=== PATIENT | male | born 1980 | race African-American/Black ===

== ENCOUNTER 2024-08-23 13:33 | Outpatient (OUT) | payer BC, SELFPAY | END 2024-08-23 13:34 | disposition home or self-care (01) | LOC: PST 13:34 | PROVIDERS: Visit Provider Surgery | DX: Z01.818 Encounter for other preprocedural examination (principal); D17.23 Benign lipomatous neoplasm of skin and subcutaneous tissue of right leg ==

== ENCOUNTER 2024-08-29 09:35 | Day surgery (SDC) | payer BC, SELFPAY ==
--- NOTE | 2024-08-29 | OP_ITS ---
OPERATION DATE: 08/29/2024 PREOPERATIVE DIAGNOSIS: Enlarging lipoma right thigh. POSTOPERATIVE DIAGNOSIS: Enlarging lipoma right thigh. PROCEDURE: Excisional biopsy lipoma of right thigh, 3 x 4 cm. SURGEON: Ziggy Aguayo M.D. ANESTHESIA: Local with 0.5% Marcaine plain. ESTIMATED BLOOD LOSS: Less than 3 mL. INDICATIONS AND CONSENT: Patient is a 44-year-old male with history of an enlarging lipoma over the last nine months on the right thigh. Indications, risks, benefits, alternatives of proceeding with excisional biopsy under local anesthesia were explained extensively to the patient, including the risks of bleeding, infection, scarring, pain, recurrence, need for further surgery or anesthetic complications. All of his questions were answered. Informed consent was obtained. PROCEDURE: Patient to the operating room, placed in the supine position. He was prepped and draped in the usual sterile fashion. The area overlying and underneath the lesion was anesthetized with 0.5% Marcaine plain. Incision was made in the area of the skin crease, over the long axis of the lipoma and carried down through subcutaneous tissue using sharp dissection as well as cautery. A 3 x 4 cm lipomas was encountered and freed up. It was sent off to Pathology. There was good hemostasis. There was some scarring around the lipoma. The subcutaneous tissue was then re-approximated using interrupted 3-0 Monocryl suture. The skin was closed with a running 4-0 subcuticular Monocryl suture and skin glue. Sterile pressure dressing was applied. Sponge and needle counts were correct x3 per nursing personnel. Patient tolerated procedure well, was sent to recovery room and then discharged home in good condition. He is to follow up in 7-10 days for wound check. He is to call sooner with any problems or questions. He is to take ibuprofen as needed for pain. CC: Patient?s family physician ERICA
--- OUTSIDE RECORDS SUMMARY | 2024-08-29 09:45 | XMS_ITS | CCD ---
Author Organization [facility] Care Team Providers Care Courtesy Car Driver Name Role Phone CASS, DR BOYCE Primary Care Unavailable SHIRLEY ZHANG Admitting Unavailable SHIRLEY ZHANG Attending Unavailable ELIANA, DR SHELLY Ngo Admitting Unavailable ELIANA, DR SHELLY Ngo Attending Unavailable ELIANA, DR SHELLY Ngo Consulting Unavailable CASS, DR BOYCE Primary Care Unavailable JERICA REEVES Consulting Unavailable ANAHI SOTO Admitting Unavailable ANAHI SOTO Attending Unavailable MANDEEP ELMORE Consulting Unavailable CASS, DR BOYCE Primary Care Unavailable ANAHI SOTO Consulting Unavailable SHIRLEY ZHANG Admitting Unavailable SHIRLEY ZHANG Attending Unavailable CASS, DR BOYCE Primary Care Unavailable WOODC, DR BOYCE Primary Care Unavailable JOSTIN, DR PIPER Ngo Consulting Unavailable SHIRLEY ZHANG Admitting Unavailable SHIRLEY ZHANG Attending Unavailable SHIRLEY ZHANG Consulting Unavailable Vcítor Mendez Unavailable BEBE, ROMARIO Referring Unavailable SERVICES, [facility] Primary Care Unava ilable BEBE, ROMARIO Primary Care Physician BEBE, ROMARIO Primary Care Unavailable BEBE, ROMARIO Referring Unavailable Ziggy JOSHUA Attending Unavailable BEBE, ROMARIO Primary Care Unavailable Allergies Allergy Classification Reported Allergen(s) Allergy Type Date of Onset Reaction(s) Facility (1 source) No Known Medication Allergies; Translations: [No Known Medication Allergies] Propensity to adverse reactions (disorder) [facility] Repository Medications Current Medications Medication Drug Class(es) Dates Sig (Normalized) Sig (Original) Vitamin D3 50,000 intl units oral capsule (1 source) Start: 07-17-2024 take 1 capsule by mouth every week Vitamin D3 50,000 intl units oral capsule 1,250 mcg = 1 cap(s), Oral, qWeek, Refills(s) 0 Start Date: 07/17/24 Status: Ordered Problems Active Problems Problem Classification Problem Date Documented Da te Episodic/Chronic Chronic ulcer of skin (1 source) Non-pressure chronic ulcer of other part of right foot limited to breakdown of skin; Translations: [N-PRS ULCR OTH PRT RT FT BRKDWN SKN] Onset: 2 Chronic Esophageal disorders (2 sources) Gastroesophageal reflux disease; Translations: [Gastro-esophageal reflux disease without esophagitis] 07-17-2024 Chronic Mycoses (5 sources) Tinea pedis; Translations: [TINEA PEDIS] Onset: 2 Episodic Nutritional deficiencies (1 source) Vitamin D deficiency 07-17-2024 Chronic Open wounds of extremities (4 sources) Unspecified open wound, left foot, initial encounter; Translations: [UNS OPEN WOUND LEFT FOOT INITIAL] Onset: 2 Episodic Other and unspecified benign neoplasm (1 source) Benign lipomatous neoplasm of skin and subcutaneous tissue of right leg; Translations: [Benign lipomatous neoplasm of skin and/or subcutaneous tissue of right lower limb] Onset: 5 Episodic Other and unspecified benign neoplasm (1 source) Lipoma of right lower limb 07-17-2024 Episodic Other connective tissue disease (4 sources) Pain in left foot; Translations: [PAIN IN LEFT FOOT] Onset: 2 Episodic Other gastrointestinal disorders (1 source) Constipation; Translations: [Constipation, unspecified] Episodic Other liver diseases (1 source) Focal nodular hyperplasia of liver; Translations: [Other specified diseases of liver] Chronic Other liver diseases (2 sources) Lesion of liver; Translations: [Liver disease, unspecified] 07-17-2024 Chronic Other liver diseases (1 source) Liver disease, unspecified Chronic Other skin disorders (1 source) Corns and callosities; Translations: [CORNS AND CALLOSITIES] Onset: 2 Episodic Other skin disorders (1 source) Localized swelling, mass and lump, right lower limb; Translations: [Localized swelling, mass and lump, right lower limb] Onset: 4 Episodic Pancreatic disorders (not diabetes) (3 sources) Chronic pancreatitis; Translations: [Other chronic pancreatitis] Chronic Residual codes; unclassified (1 source) Tobacco user 08-08-2024 Episodic Substance-related disorders (1 source) Nicotine dependence, cigarettes, uncomplicated; Translations: [NICOTINE DEPEND CIGARETTES UNCOMP] Onset: 2 Chronic Past or Other Problems Problem Classification Problem Date Documented Da te Episodic/Chronic Abdominal pain (4 sources) Epigastric pain; Translations: [EPIGASTRIC PAIN] Onset: 08-04-2021 Episodic Pancreatic disorders (not diabetes) (1 source) Acute pancreatitis without necrosis or infection, unspecified; Translations: [ACUTE PANCREATITIS WO NECRS/INF UNS] Onset: 08-06-2021 Episodic Results Test Name Value Interpretation Reference Range Facil ity Ambulatory Visit Summaryon 0 08-08-2024 Ambulatory Visit Summary Ambulatory Visit Summary RAJANI ELDER :1980 Visit Date:08/08/2024 Ambulatory Visit Instructions Your Diagnosis Lipoma of right lower extremity Your Care Team Attending Physician - JOSIANE CANNON, Ziggy Ngo Primary Care Physician - ROMARIO SPENCE Referring Physician - ROMARIO SPENCE This Is Your Medications List cholecalciferol (Vitamin D3 50,000 intl units oral capsule) Procedures Performed None. Discharge Vitals Heart Rate (Peripheral) 70 Respiratory Rate 16 Blood Pressure 116/70 Height 179 cm Height 70 in Weight 76.1 kg Weight 167.772 lb BMI 23.75 Medications What How Much When Instructions Unchanged cholecalciferol (Vitamin D3 50,000 intl units oral capsule) 1 Capsules By Mouth Every week Allergies No Known Allergies No Known Medication Allergies Problems Ongoing - Any problem that you are currently receiving treatment for. Chronic pancreatitis Gastroesophageal reflux disease Lesion of liver Lipoma of right lower extremity Vitamin D deficiency Patient Survey You may receive a survey via text or e-mail asking about your office visit. Please share your experience with us by completing your survey. We appreciate your feedback and thank you for choosing us for your care. Normal [facility] US EXT NON-VASC RT LIMITEDon 06-23-2024 US EXT NON-VASC RT LIMITED US EXT NON-VASC RT LIMITED ULTRASOUND EXTREMITY NONVASCULAR LIMITED RIGHT HISTORY: Right leg swelling, lump of scan COMPARISON: None FINDINGS: At the site of lump in the right lateral thigh there is an oval circumscribed isoechoic structure in the subcutaneous tissues measuring 4.0 x 0.6 x 3.9 cm. IMPRESSION: Palpable lump in the right lateral thigh corresponds to an oval circumscribed structure measuring 4.0 x 0.6 x 3.9 cm in the subcutaneous tissues isoechoic to adjacent subcutaneous fat. This may represent lipoma. If there is growth of this lesion or other concerning clinical factors recommend short-term follow-up imaging or further characterization with cross-sectional imaging. Finalized by Austin Pop MD on 06/23/2024 9:40 AM Normal [facility] XR FOOT LT MIN 3 VIEWSon XR FOOT LT MIN 3 VIEWS EXAM: XR FOOT LT MIN 3 VIEWS HISTORY: Left foot Pain puncture wound. COMPARISON: None available. TECHNIQUE: AP, lateral and oblique views of the left foot are obtained. FINDINGS: There is no focal soft tissue swelling or radiopaque foreign body. No subcutaneous emphysema. No ankle joint effusion. Osseous mineralization is within normal limits. No acute fracture or dislocation. Spurring at the anterior talus is present. Tarsal alignment and joint spaces are normally maintained IMPRESSION: No acute fracture or dislocation. No radiopaque foreign body. Electronically authenticated by: JERICA REEVES Date: 2022-04-05 01:19 Normal [facility] AMYLASEon 08-04-2021 Amylase [Catalytic activity/Vol] 128 U/L Critically high 31-110 [facility] Comment on above: Performed By: #### C MP, LIPA, LIZZY #### [facility] [address] [place] [address] Dr. Cirilo Melendez CBC AUTO DIFFon 08-04-2021 BASO # 0.0 103/ul Normal 0.0-0.1 [facility] Comment on above: Performed By: #### C BC #### [facility] [address] [place] [address] Dr. Cirilo Melendez Basophils/100 WBC (Bld) 0.4 % Normal 0.2-2.0 [facility] Comment on above: Performed By: #### C BC #### [facility] [address] [place] [address] Dr. Cirilo Melendez EO # 0.1 103/ul Normal 0.0-0.7 [facility] Comment on above: Performed By: #### C BC #### [facility] [address] [place] [address] Dr. Cirilo Melendez Eosinophils/100 WBC (Bld) 0.8 % Critically low 0.9-7.0 [facility] Comment on above: Performed By: #### C BC #### [facility] [address] [place] [address] Dr. Cirilo Melendez Erythrocyte distribution width (RBC) [Ratio] 13.9 % Normal 11.0-15.0 [facility] Comment on above: Performed By: #### C BC #### [facility] [address] [place] [address] Dr. Cirilo Melendez Hematocrit (Bld) [Volume fraction] 45.0 % Normal 42.0-54.0 [facility] Comment on above: Performed By: #### C BC #### [facility] [address] [place] [address] Dr. Cirilo Melendez Hemoglobin (Bld) [Mass/Vol] 15.2 g/dL Normal 14.0-18.0 [facility] Comment on above: Performed By: #### C BC #### [facility] [address] [place] [address] Dr. Cirilo Melendez IG # 0.04 10e3/ul Critically high 0.00-0.03 [facility] Comment on above: Performed By: #### C BC #### [facility] [address] [place] [address] Dr. Cirilo Melendez IG % 0.4 % Normal 0.0-0.5 [facility] Comment on above: Performed By: #### C BC #### [facility] [address] [place] [address] Dr. Cirilo Melendez LYMPH # 2.5 103/ul Normal 1.2-3.8 [facility] Comment on above: Performed By: #### C BC #### [facility] [address] [place] [address] Dr. Cirilo Melendez Lymphocytes/100 WBC (Bld) 27.6 % Normal 20.5-60.0 [facility] Comment on above: Performed By: #### C BC #### [facility] [address] [place] [address] Dr. Cirilo Melendez MANUAL DIFF REQ NO Normal [facility] Comment on above: Performed By: #### C BC #### [facility] [address] [place] [address] Dr. Cirilo Melendez MCH (RBC) [Entitic mass] 30.5 pg Normal 25.9-34.0 [facility] Comment on above: Performed By: #### C BC #### [facility] [address] [place] [address] Dr. Cirilo Melendez MCHC (RBC) [Mass/Vol] 33.8 g/dL Normal 29.9-35.2 [facility] Comment on above: Performed By: #### C BC #### [facility] [address] [place] [address] Dr. Cirilo Melendez MCV (RBC) [Entitic vol] 90.2 fL Normal 80.0-94.0 [facility] Comment on above: Performed By: #### C BC #### [facility] [address] [place] [address] Dr. Cirilo Melendez MONO # 0.8 103/ul Normal 0.3-0.8 [facility] Comment on above: Performed By: #### C BC #### [facility] [address] [place] [address] Dr. Cirilo Melendez Monocytes/100 WBC (Bld) 8.7 % Normal 1.7-12.0 [facility] Comment on above: Performed By: #### C BC #### [facility] [address] [place] [address] Dr. Cirilo Melendez NEUT # 5.6 103/ul Normal 1.4-6.5 [facility] Comment on above: Performed By: #### C BC #### [facility] [address] [place] [address] Dr. Cirilo Melendez Neutrophils/100 WBC (Bld) 62.1 % Normal 43.0-75.0 [facility] Comment on above: Performed By: #### C BC #### [facility] [address] [place] [address] Dr. Cirilo Melendez Platelet mean volume (Bld) [Entitic vol] 9.4 fL Critically low 9.5-13.5 [facility] Comment on above: Performed By: #### C BC #### [facility] [address] [place] [address] Dr. Cirilo Melendez PLT 272 103/ul Normal 150-450 [facility] Comment on above: Performed By: #### C BC #### [facility] [address] [place] [address] Dr. Cirilo Melendez RBC 4.99 106/ul Normal 4.70-6.10 [facility] Comment on above: Performed By: #### C BC #### [facility] [address] [place] [address] Dr. Cirilo Melendez WBC 9.1 103/ul Normal 4.0-11.0 [facility] Comment on above: Performed By: #### C BC #### [facility] [address] [place] [address] Dr. Cirilo Melendez ER URINE PROFILEon 2 Bilirubin Ql (U) Negative Normal NEGATIVE [facility] Comment on above: Performed By: #### E RUR #### [facility] [address] [place] [address] Dr. Cirilo Melendez Clarity (U) CLEAR Normal CLEAR [facility] Comment on above: Performed By: #### E RUR #### [facility] [address] [place] [address] Dr. Cirilo Melendez Color (U) YELLOW Normal YELLOW [facility] Comment on above: Performed By: #### E RUR #### [facility] [address] [place] [address] Dr. Cirilo ZALDIVARMaile A micrscopic examination will be performed if indicated. Normal [facility] Comment on above: Performed By: #### E RUR #### [facility] [address] [place] [address] Dr. Cirilo Melendez Glucose Ql (U) Negative Normal NEGATIVE [facility] Comment on above: Performed By: #### E RUR #### [facility] [address] [place] [address] Dr. Cirilo Melendez Hemoglobin Ql (U) Negative Normal NEGATIVE [facility] Comment on above: Performed By: #### E RUR #### [facility] [address] [place] [address] Dr. Cirilo Melendez Ketones Ql (U) Negative Normal NEGATIVE [facility] Comment on above: Performed By: #### E RUR #### [facility] [address] [place] [address] Dr. Cirilo Melendez LEUKOCYTES Negative Normal NEGATIVE [facility] Comment on above: Performed By: #### E RUR #### [facility] [address] [place] [address] Dr. Cirilo Melendez Nitrite Ql (U) Negative Normal NEGATIVE [facility] Comment on above: Performed By: #### E RUR #### [facility] [address] [place] [address] Dr. Cirilo Melendez pH (U) 6.0 [pH] Normal 5-9 [facility] Comment on above: Performed By: #### E RUR #### [facility] [address] [place] [address] Dr. Cirilo Melendez SPEC GRAVITY 1.025 Normal 1.005-<=1.025 [facility] Comment on above: Performed By: #### E RUR #### [facility] [address] [place] [address] Dr. Cirilo Melendez UA PROTEIN Negative Normal NEGATIVE/ TRACE [facility] Comment on above: Performed By: #### E RUR #### [facility] [address] [place] [address] Dr. Cirilo Melendez UR MICRO IND NOT INDICATED Normal [facility] Comment on above: Performed By: #### E RUR #### [facility] [address] [place] [address] Dr. Cirilo Melendez Urobilinogen Qn (U) 0.2 {Gertrudis'U}/dL Normal 0.2 - 1.0 [facility] Comment on above: Performed By: #### E RUR #### [facility] [address] [place] [address] Dr. Cirilo Melendez LACTATE/LACTIC ACIDon 2021 Lactate [Moles/Vol] 0.6 mmol/L Critically low 0.7-2.0 [facility] Comment on above: Performed By: #### L ACT #### [facility] [address] [place] [address] Dr. Cirilo Melendez LIPASEon 08-04-2021 Lipase [Catalytic activity/Vol] 508.0 U/L Critically high 23.0-300.0 [facility] Comment on above: Performed By: #### C NELLIE CHI, LIZZY #### [facility] [address] [place] [address] Dr. Cirilo Melendez PROF 14(COMP METB)on 022 Albumin [Mass/Vol] 3.8 g/dL Normal 3.5-5.0 [facility] Comment on above: Performed By: #### C ALON LIPA, LIZZY #### [facility] [address] [place] [address] Dr. Cirilo Melendez Albumin/Globulin [Mass ratio] 0.9 {ratio} Normal [facility] Comment on above: Performed By: #### C ALON LIPA, LIZZY #### [facility] [address] [place] [address] Dr. Cirilo Melendez ALP [Catalytic activity/Vol] 74 U/L Normal 38-126 [facility] Comment on above: Performed By: #### C MP LIPA, LIZZY #### [facility] [address] [place] [address] Dr. Cirilo Melendez ALT [Catalytic activity/Vol] 45 U/L Normal 21-72 [facility] Comment on above: Performed By: #### C MP LIPA, LIZZY #### [facility] [address] [place] [address] Dr. Cirilo Melendez Anion gap [Moles/Vol] 10.0 mmol/L Normal [facility] Comment on above: Performed By: #### C MP LIPA, LIZZY #### [facility] [address] [address] [address] Cirilo Melendez AST [Catalytic activity/Vol] 16 U/L Critically low 17-59 [facility] Comment on above: Performed By: #### C MP, LIPA, LIZZY #### [facility] [address] [address] [address] Cirilo Melendez Bilirubin [Mass/Vol] 0.4 mg/dL Normal 0.2-1.3 [facility] Comment on above: Performed By: #### C MP, LIPA, LIZZY #### [facility] [address] [address] [address] Cirilo Melendez Calcium [Mass/Vol] 9.7 mg/dL Normal 8.4-10.2 [facility] Comment on above: Performed By: #### C MP, LIPA, LIZZY #### [facility] [address] [place] [address] Dr. iCrilo Melendez Chloride [Moles/Vol] 103 mmol/L Normal 98-107 [facility] Comment on above: Performed By: #### C MP, LIPA, LIZZY #### [facility] [address] [address] [address] Cirilo Melendez CO2 [Moles/Vol] 30.3 mmol/L Critically high 22.0-30.0 [facility] Comment on above: Performed By: #### C MP, LIPA, LIZZY #### [facility] [address] [address] [address] Cirilo Melendez Creatinine [Mass/Vol] 1.13 mg/dL Normal 0.66-1.25 [facility] Comment on above: Performed By: #### C MP, LIPA, LIZZY #### [facility] [address] [address] [address] Cirilo Melendez EGFR-AF [place]IZEN [place] >60 Normal >=60 [facility] Comment on above: Performed By: #### C MP, LIPA, LIZZY #### [facility] [address] [place] [address] Dr. Cirilo Melendez EGFR-NON AF CITIZEN [place] >60 Normal >=60 [facility] Comment on above: Performed By: #### C MP, LIPA, LIZZY #### [facility] [address] [place] [address] Dr. Cirilo Melendez Globulin (S) [Mass/Vol] 4.3 g/dL Normal [facility] Comment on above: Performed By: #### C MP, LIPA, LIZZY #### [facility] [address] [place] [address] Dr. Cirilo Melendez Glucose [Mass/Vol] 121 mg/dL Critically high 74-106 [facility] Comment on above: Performed By: #### C MP, LIPA, LIZZY #### [facility] [address] [place] [address] Dr. Cirilo Melendez Potassium [Moles/Vol] 4.3 mmol/L Normal 3.4-5.0 [facility] Comment on above: Performed By: #### C MP, LIPA, LIZZY #### [facility] [address] [place] [address] Dr. Cirilo Melendez Protein [Mass/Vol] 8.1 g/dL Normal 6.1-8.2 [facility] Comment on above: Performed By: #### C MP LIPA, LIZZY #### [facility] [address] [place] [address] Dr. Cirilo Melendez Sodium [Moles/Vol] 139 mmol/L Normal 137-145 [facility] Comment on above: Performed By: #### C MP, LIPA, LIZZY #### [facility] [address] [place] [address] Dr. Cirilo Melendez Urea nitrogen [Mass/Vol] 9.0 mg/dL Normal 9.0-20.0 [facility] Comment on above: Performed By: #### C MP, LIPA, LIZZY #### [facility] [address] [place] [address] Dr. Cirilo Melendez Urea nitrogen/Creatinin e [Mass ratio] 8.0 mg/mg Normal [facility] Comment on above: Performed By: #### C MP, LIPA, LIZZY #### [facility] [address] [place] [address] Dr. Cirilo Melendez PROTIMEon 01-11-2022 INR Coag (PPP) [Relative time] 1.03 {INR} Normal [facility] Comment on above: Performed By: #### P TT, PT #### [facility] [address] [place] [address] Dr. Cirilo Melendez INR GUIDELINES SEE BELOW Normal [facility] Comment on above: Result Comment: MIREYA RED INR: 2.0 - 3.0 CONDITIONS NOT LISTED BELOW 2.5 - 3.5 FOR PROSTHETIC HEART VALVE REPLACEMENT 2.5 - 3.5 RECURRENT THROMBOSIS Performed By: #### P TT, PT #### [facility] [address] [place] [address] Dr. Cirilo Melendez PT Coag (PPP) [Time] 11.1 s Normal 9.0-11.6 [facility] Comment on above: Performed By: #### P TT, PT #### [facility] [address] [place] [address] Dr. Cirilo Melendez PTTon 08-04-2021 aPTT Coag (Bld) [Time] 28.2 s Normal 22.3-36.2 [facility] Comment on above: Performed By: #### P TT, PT #### [facility] [address] [place] [address] Dr. Cirilo Melendez Vital Signs Date Time Vital Sign Value Performing Clinician Facility 08-08-2024 13:26-0500 Blood Pressure Location Ziggy JOSHUA [facility] [place] 08-08-2024 13:26-0500 Diastolic blood pressure 70 mm[Hg] Ziggy JOSHUA [facility] [place] 08-08-2024 13:26-0500 Heart rate 70 /min Ziggy JOSHUA [facility] [place] 08-08-2024 13:26-0500 Respiratory rate 16 /min Ziggy JOSHUA [facility] [place] 08-08-2024 13:26-0500 Systolic blood pressure 116 mm[Hg] Ziggy JOSHUA [facility] [place] 10-13-2022 11:30-0400 Body height 182.88 cm Víctor Mendez Other [facility] Other 10-13-2022 11:30-0400 Body mass index (BMI) [Ratio] 24 kg/m2 Víctor Mendez Other [facility] Other 10-13-2022 11:30-0400 Body weight 80.29 kg Víctor Mendez Other [facility] Other 10-13-2022 11:30-0400 Diastolic blood pressure 73 mm[Hg] Víctor Mendez Other [facility] Other 10-13-2022 11:30-0400 Systolic blood pressure 120 mm[Hg] Víctor Mendez Other [facility] Other Encounters Encounter Date Encounter Type Care Provider Facility Start: 08-08-2024 End: 08-08-2024 ambulatory ROMARIO BEBE Facility:[facility] Start: 08-08-2024 End: 08-08-2024 Patient encounter procedure Ziggy JOSHUA [facility] [place] Start: 07-10-2024 ambulatory ROMARIO BEBE Facility:[facility] [place] Start: 06-20-2024 End: 06-20-2024 ambulatory ROMARIO BEBE [facility] Start: 10-13-2022 End: 10-13-2022 ambulatory Víctor Mendez Other [facility] Other Start: 10-13-2022 Office outpatient ne w 45 minutes Víctor Mendez [facility] G[facility] Start: 05-24-[address] DOCTOR ODELL Facility :[facility] Start: 05-04-2022 End: 05-05-[address] DOCTOR ODELL Facility:[facility] Start: 04-06-2022 End: 04-07-2022 ambulatory SHIRLEY ZHANG Facility:[facility] Start: 04-05-2022 End: 04-05-[address] SHELLY MONROY Facility:[facility] Start: 08-04-2021 End: 08-05-2021 ambulatory ANAHI SOTO Facility:[facility] Procedures Date Procedure Procedure Detail Performing Clinician None (qualifier value) Denny JOSHUA Payers Date Payer Category Payer Unknown [id number] 2.16.84 [id number] 1981 Unknown [id number] 2.16.84 [id number] 1981 Unknown [id number] 2.16.84 [id number] 1981 Unknown [id number] 2.16.84 [id number] 1981 Unknown [id number] 2.16.84 [id number] 1981 Unknown [id number] 2.16.8 [id number] 1981 Unknown [id number] 2.16.8 [id number] 1959 Unknown [id number] Medicaid [id number]. [id number] Social History Date Type Detail Facility Sex Assigned At [facility] Start: 08-08-2024 Tobacco smoking status Smokes tobacco daily (finding) [facility] [place] Tobacco smoking status Never [facility] [place] Functional Status Date Assessment Result Facility 08-08-2024 Functional Status N/A [facility] [place] Clinical Note 08-08-2024 Note Date & Type Note Facility 08-08-2024 Note General Surgery Offi ce/Clinic Note Chief Complaint consultation for lipoma HPI Staff 44 year old male presents on consultation from Dr. Spence for right lateral thigh lipoma. Reports mass to upper leg has been present for approximately 7-8 months and has been increasing in size. Verbalized he has a mass to right posterior thigh he would like evaluated today as well. Denies pain or discomfort to either location. US completed 06/23/24 of upper leg mass with probable lipoma. History of Present Illness 44 yo male with h/o GERD, referred for possible lipoma right lateral thigh; result US of area with 4 x 0.6 x 4 cm subcutaneous mass, consistent with possible lipoma; patient reports mass increasing in size over the last several months; no pain or skin changes, no h/o other similar lesions; no asa or NSAID use; smokes cigars/pipes daily. Review of Systems PHQ Score Initial Depression Screen Score: 1 SCORE ROS - Provider Constitutional: no fever, no sweats, no weight loss. Eyes: no glasses, no blurred vision, no visual loss. ENMT: no dentures, no hoarseness, no swallowing difficulties, no hearing loss, no ear infection(s), no nose bleeds. Cardiovascular: normal blood pressure, no chest pain, regular heartbeat, no heart murmur. Respiratory: no shortness of breath, no cough, no asthma, no wheezing. Gastrointestinal: no nausea, no vomiting, no diarrhea, no constipation, no blood in stool, no change in bowel habits, no abdominal pain, no hepatitis. Genitourinary: no kidney stones, no urine infection, no dysuria. Musculoskeletal: no pain, no weakness. Skin: no changing moles, no rash, no skin lumps. Neurologic: no seizures, no epilepsy, no headache. Psychiatric: no emotional or psychiatric problem. Heme/Lymph: no bleeding problems, no anemia, no blood clots, no transfusions. Allergy/Immunologic: no swollen lymph nodes/glands, no IV drug abuse. Other: Additional ROS info: Except as noted in the above Review of Systems and in the History of Present Illness, all other systems have been reviewed and are negative or noncontributory. Physical Exam Vitals & Measurements HR: 70(Peripheral) RR: 16 BP: 116/70 HT: 70 in HT: 179 cm WT: 76.1 kg WT: 167.772 lb BMI: 23.75 HEENT: normal conjunctiva, sclera clear, no scleral icterus, EOM intact, PERRLA, oral mucosa moist without lesions. Neck: trachea midline, no mass, symmetric, no thyromegaly or nodules, no adenopathy Respiratory: lungs CTA, respirations non labored. Cardiovascular: regular rate and rhythm, no murmur, no pedal edema or varicosities. Musculoskeletal: normal gait, digits and nails without infection, nodes, cyanosis, clubbing. Skin: no rashes, no lesions, no ulcers, right lateral thigh with 4 cm soft subcutaneous mass, nontender, no skin changes. Psychiatric/Neuro: oriented to time, place, person, judgement normal, affect appropriate for age, insight intact, no focal deficits. Tests: x-rays reviewed, review of old records completed , Discussed surgical options, risks, and possible complications with patient. Assessment/Plan 1. Lipoma of right lower extremity (D17.23: Benign lipomatous neoplasm of skin and subcutaneous tissue of right leg) plan excisional biopsy under local anesthesia at [facility] for definitive diagnosis and treatment; informed consent obtained. Follow-up No qualifying data available Problem List/Past Medical History Ongoing Chronic pancreatitis Gastroesophageal reflux disease Lesion of liver Lipoma of right lower extremity Vitamin D deficiency Historical No qualifying data Procedure/Surgical History None. Medications Vitamin D3 50,000 intl units oral capsule, 1250 mcg= 1 cap(s), Oral, qWeek Allergies No Known Allergies No Known Medication Allergies Social History Alcohol Past. Beer. 1-2 times per month., 08/08/2024 Substance Abuse Current, Marijuana, 3-5 times per week, 08/08/2024 Tobacco Cigars or pipes daily within last 30 days Tobacco Use:. Never Smokeless Tobacco Use:. Cigars, Started age 27.0 Years. Yes, 08/08/2024 Family History Primary malignant neoplasm of female breast: Mother. [facility] Comment on above: Result Comment: Elec tronically Signed By: JOSIANE CANNON, Ziggy Cheung\Date and Time Signed: 08/08/24 14:09 EST Evaluation note 10-13-2022 Note Date & Type Note Facility 10-13-2022 Evaluation note Encounter Date Diagnosis Assessment Notes Sep, Liver lesion (ICD-10 - K76.9) Sep, Chronic pancreatitis (ICD-10 - K86.1) [facility] [employer] Other Clinical Note 05-04-2022 Note Date & Type Note Facility 05-04-2022 Note PROCEDURE: XR FOOT L T MIN 3 VIEWS HISTORY: Pain in left foot ; follow-up puncture wound plantar surface first metatarsal region. COMPARISON: XR foot left 04/05/2022 FINDINGS: BONES:No fracture, acute abnormality, or significant arthropathy. SOFT TISSUES:No visible soft tissue swelling. EFFUSION:None visible. OTHER: Negative. IMPRESSION: 1. No radiopaque foreign body. 2. No acute bone abnormality or significant degenerative changes. Electronically authenticated by: PIPER FRANKEL Date: 2022-05-04 16:34 [facility] Evaluation + Plan note Note Date & Type Note Facility Evaluation + Plan note No data available for this section [facility] History general Narrative - Reported Note Date & Type Note Facility History general Narrative - Reported Type Medical History alcohol abuse [facility] [employer] Other Hospital Discharge instructions Note Date & Type Note Facility Hospital Discharge instructions No data available for this section [facility] Progress note Note Date & Type Note Facility Progress note No data available for this section [facility] Summary Purpose Family History No Family History Records FoundNo Family History Records Found No data available for this section No Family History Records Found Advance Directives No Advanced Directives Records FoundNo Advanced Directives Records FoundNo Advanced Directives Records Found Additional Source Comments (unrecognized sect ion and content) No Status Records FoundNo Status Records FoundNo Status Records Found INFORMATION SOURCE (unrecogn ized section and content) DATE CREATED AUTHOR 05/20/2022 [facility] DATE CREATED AUTHOR AUTHOR'S ORGANIZ ATION 06/23/2024 [facility] DATE CREATED AUTHOR AUTHOR'S ORGANIZ ATION 08/11/2024 [facility] REASON FOR VISIT (unrecogniz ed section and content) PATIENT HERE AT THE REQUEST OF DR. JANN ALBERTO FOR LIVER MASS AND CHRONIC PANCREATITIS/PER LRM DOUBLE BOOK Patient Care team informatio n (unrecognized section and content) Personnel Name: ROMARIO SPENCE Address: Address: [address] [place] [address] FOR RECORDS PERTAINING TO PATIENTS WHO ARE OR HAVE BEEN ENROLLED IN A CHEMICAL DEPENDENCY/SUBSTANCEABUSE PROGRAM, SOME INFORMATION MAY BE OMITTED. This clinical summary was aggregated from multiple sources. Caution should be exercised in using it in the provision of clinical care. This summary normalizes information from multiple sources, and as a consequence, information in this document may materially change the coding, format and clinical context of patient data. In addition, data may be omitted in some cases. CLINICAL DECISIONS SHOULD BE BASED ON THE PRIMARY CLINICAL RECORDS. [facility] [employer] [facility]. provides no warranty or guarantee of the accuracy or completeness of information in this document.
[2024-08-29 10:44] VITALS: BP 110/72; BP 117/71; PULSE 58; PULSE 75; O2SAT 100
[2024-08-29] MEDS: BUPIVACAINE HCL 0.5% PF 50 MG/10 ML VIAL INJ (10:45)
== END 2024-08-29 11:20 | disposition home or self-care (01) ==
PROVIDERS: Visit Provider Surgery
PROC: (CPT 27337; principal; 2024-08-29 11:05)
DX: D17.23 Benign lipomatous neoplasm of skin and subcutaneous tissue of right leg (principal)
CPT/HCPCS: 27337; 88304; J0665

== ENCOUNTER 2024-09-04 19:22 | Emergency (ER) | payer BC, SELFPAY ==
--- OUTSIDE RECORDS SUMMARY | 2024-09-04 19:28 | XMS_ITS | CCD ---
Author Organization [facility] Care Team Providers Care Kettle Cleaner Name Role Phone CASS, DR BOYCE Primary Care Unavailable SHIRLEY ZHANG Admitting Unavailable SHIRLEY ZHANG Attending Unavailable ELIANA, DR SHELLY Ngo Admitting Unavailable ELIANA, DR SHELLY Ngo Attending Unavailable ELIANA, DR SHELLY Ngo Consulting Unavailable CASS, DR BOYCE Primary Care Unavailable JERICA REEVES Consulting Unavailable ANAHI SOTO Admitting Unavailable ANAHI SOTO Attending Unavailable MANDEEP ELMORE Consulting Unavailable WOODC, DR BOYCE Primary Care Unavailable ANAHI SOTO Consulting Unavailable SHIRLEY ZHANG Admitting Unavailable SHIRLEY ZHANG Attending Unavailable CASS, DR BOYCE Primary Care Unavailable CASS, DR BOYCE Primary Care Unavailable JOSTIN, DR PIPER Ngo Consulting Unavailable SHIRLEY ZAHNG Admitting Unavailable SHIRLEY ZHANG Attending Unavailable SHIRLEY ZHANG Consulting Unavailable Víctor Mendez Unavailable [phone] BEBE, ROMARIO Referring Unavailable SERVICES, [facility] Primary Care Unava ilable BEBE, ROMARIO Primary Care Physician BEBE, ROMARIO Primary Care Unavailable BEBE, ROMARIO Referring Unavailable Ziggy AGUAYO Attending Unavailable BEBE, [facility] Primary Care Unavailable Ziggy Aguayo MD Attending Provider [phone] Ziggy Aguayo Attending Unavailable Ziggy Aguayo Admitting Unavailable Allergies Allergy Classification Reported Allergen(s) Allergy Type Date of Onset Reaction(s) Facility (1 source) No Known Medication Allergies; Translations: [No Known Medication Allergies] Propensity to adverse reactions (disorder) [facility] Repository Medications Current Medications Medication Drug [...] Test Name Value Interpretation Reference Range Facil luis miguelmeagan Cedric 08-29-2024 L -- ---- Specimen: [id number] Received: 08/29/24 Status: ARABELLA Ashley Num: [id number] Spec Type: Surgical Subm Dr: Ziggy Aguayo MD FACS Tissues: A Lipoma (RT THIGH) Procedures: VALENTIN, Gross/Micro L3 ---- Age/ Patient Sex Location Account Attending Physician ---- Abraham Gomez 44/M LABELL [id number] Ziggy Aguayo MD FACS ---- SPEC NUM: [id number] RECD: 08/29/24 STATUS: CRISTINOMicki RE NUM: [id number] OVI: 08/29/[address]: Ziggy Aguayo MD FACS ENTERED: 08/29/[address]: Karime Phelps SPEC TYPE: Surgical DEPT: TERRI LYNN ORDERED: HE, Gross/Micro L3 ORDERED: HE, Gross/Micro L3 Pathological Diagnosis Soft tissue, right thigh, excision -Large lobulated fragments of benign lipoma with the associated smooth membranous external surfaces are also attached Clinical Information Lipoma right thigh Gross Description A. Received in formalin labeled with the patient's name, date of and right thigh lipoma are 2 fragments of yellow lobulated adipose tissue collectively measuring 4.2 x 3.1 x 1.0 cm. The specimen is inked blue and serially section revealing an unremarkable and homogenous cut surface. No areas of hemorrhage or necrosis are present. [employer] sections are submitted in A1. TW ---- Specimen: [id number] Received: 08/29/24 Status: CRISTINOMicki Ramirez Num: [id number] Spec Type: Surgical Subm Dr: Ziggy Aguayo MD FACS Tissues: A Lipoma (RT THIGH) Procedures: VALENTIN, Gross/Micro L3 ---- Patient: Abraham Gomez [id number] (Continued) ---- Specimen: [id number] Received: 08/29/24 (Continued) Signed (signature on file) Joshua Melendez MD 08/30/24 1651 ---- Specimen: [id number] Received: 08/29/24 Status: ARABELLA Ramirez Num: [id number] Spec Type: Surgical Subm Dr: Ziggy Aguayo MD FACS Tissues: A Lipoma (RT THIGH) Procedures: Sharad HANSON/Diony L3 ---- Patient: Lionel Gomezcarmen [id number] (Continued) ---- Specimen: [id number] Received: 08/29/24 (Continued) Microscopic Description Microscopic examinations are performed supporting the above interpretation CPT Codes 10077 ---- ---- Specimen: [id number] Received: 08/29/24 Status: ARABELLA Ramirez Num: [id number] Spec Type: Surgical Subm Dr: Ziggy Aguayo MD FACS Tissues: A Lipoma (RT THIGH) Procedures: Sharad HANSON/Diony L3 ---- Patient: JasonAbraham [id number] (Continued) ---- Signed (signature on file) Phi-Cory Melendez MD 08/30/24 1651 Normal [facility] Ambulatory Visit Summaryon 0 08-08-2024 Ambulatory Visit Summary Ambulatory Visit Summary ABRAHAM GOMEZ :1980 Visit Date:08/08/2024 Ambulatory Visit Instructions Your [...] you for choosing us for your care. [facility] US EXT NON-VASC RT LIMITEDon 06-23-2024 [...] Pop MD on 06/23/2024 9:40 AM Normal [facility] XR FOOT LT MIN 3 VIEWSon [...] JERICA REEVES Date: 2022-04-05 01:19 Normal [facility] AMYLASEon 08-04-2021 Amylase [Catalytic activity/Vol] 128 U/L Critically high 31-110 [facility] Comment on above: Performed By: #### C MP, LIPA, LIZZY #### [facility] [address] [place] [address] Dr. Cirilo Melendez CBC AUTO DIFFon 08-04-2021 BASO # 0.0 103/ul Normal 0.0-0.1 [facility] Comment on above: Performed By: #### C BC #### [facility] [address] [place] [address] Dr. Cirilo Melendez Basophils/100 WBC (Bld) 0.4 % Normal 0.2-2.0 [facility] Comment on above: Performed By: #### C BC #### [facility] [address] [place] [address] Dr. Cirilo Melendez EO # 0.1 103/ul Normal 0.0-0.7 [facility] Comment on above: Performed By: #### C BC #### [facility] [address] [place] [address] Dr. Cirilo Melendez Eosinophils/100 WBC (Bld) 0.8 % Critically low 0.9-7.0 [facility] Comment on above: Performed By: #### C BC #### [facility] [address] [place] [address] Dr. Cirilo Melendez Erythrocyte distribution width (RBC) [Ratio] 13.9 % Normal 11.0-15.0 [facility] Comment on above: Performed By: #### C BC #### [facility] [address] [place] [address] Dr. Cirilo Melendez Hematocrit (Bld) [Volume fraction] 45.0 % Normal 42.0-54.0 [facility] Comment on above: Performed By: #### C BC #### [facility] [address] [place] [address] Dr. Cirilo Melendez Hemoglobin (Bld) [Mass/Vol] 15.2 g/dL Normal 14.0-18.0 [facility] Comment on above: Performed By: #### C BC #### [facility] [address] [place] [address] Dr. Cirilo Melendez IG # 0.04 10e3/ul Critically high 0.00-0.03 [facility] Comment on above: Performed By: #### C BC #### [facility] [address] [place] [address] Dr. Cirilo Melendez IG % 0.4 % Normal 0.0-0.5 [facility] Comment on above: Performed By: #### C BC #### [facility] [address] [place] [address] Dr. Cirilo Melendez LYMPH # 2.5 103/ul Normal 1.2-3.8 [facility] Comment on above: Performed By: #### C BC #### [facility] [address] [place] [address] Dr. Cirilo Melendez Lymphocytes/100 WBC (Bld) 27.6 % Normal 20.5-60.0 [facility] Comment on above: Performed By: #### C BC #### [facility] [address] [place] [address] Dr. Cirilo Melendez MANUAL DIFF REQ NO Normal [facility] Comment on above: Performed By: #### C BC #### [facility] [address] [place] [address] Dr. Cirilo Melendez MCH (RBC) [Entitic mass] 30.5 pg Normal 25.9-34.0 [facility] Comment on above: Performed By: #### C BC #### [facility] [address] [place] [address] Dr. Cirilo Melendez MCHC (RBC) [Mass/Vol] 33.8 g/dL Normal 29.9-35.2 [facility] Comment on above: Performed By: #### C BC #### [facility] [address] [place] [address] Dr. Cirilo Melendez MCV (RBC) [Entitic vol] 90.2 fL Normal 80.0-94.0 [facility] Comment on above: Performed By: #### C BC #### [facility] [address] [place] [address] Dr. Cirilo Melendez MONO # 0.8 103/ul Normal 0.3-0.8 [facility] Comment on above: Performed By: #### C BC #### [facility] [address] [place] [address] Dr. Cirilo Melendez Monocytes/100 WBC (Bld) 8.7 % Normal 1.7-12.0 [facility] Comment on above: Performed By: #### C BC #### [facility] [address] [place] [address] Dr. Cirilo Melendez NEUT # 5.6 103/ul Normal 1.4-6.5 [facility] Comment on above: Performed By: #### C BC #### [facility] [address] [place] [address] Dr. Cirilo Melendez Neutrophils/100 WBC (Bld) 62.1 % Normal 43.0-75.0 [facility] Comment on above: Performed By: #### C BC #### [facility] [address] [place] [address] Dr. Cirilo Melendez Platelet mean volume (Bld) [Entitic vol] 9.4 fL Critically low 9.5-13.5 [facility] Comment on above: Performed By: #### C BC #### [facility] [address] [place] [address] Dr. Cirilo Melendez PLT 272 103/ul Normal 150-450 [facility] Comment on above: Performed By: #### C BC #### [facility] [address] [place] [address] Dr. Cirilo Melendez RBC 4.99 106/ul Normal 4.70-6.10 [facility] Comment on above: Performed By: #### C BC #### [facility] [address] [place] [address] Dr. Cirilo Melendez WBC 9.1 103/ul Normal 4.0-11.0 [facility] Comment on above: Performed By: #### C BC #### [facility] [address] [place] [address] Dr. Cirilo Melendez ER URINE PROFILEon 2 Bilirubin Ql (U) Negative Normal NEGATIVE [facility] Comment on above: Performed By: #### E RUR #### [facility] [address] [place] [address] Dr. Cirilo Melendez Clarity (U) CLEAR Normal CLEAR [facility] Comment on above: Performed By: #### E RUR #### [facility] [address] [place] [address] Dr. Cirilo Melendez Color (U) YELLOW Normal YELLOW [facility] Comment on above: Performed By: #### E RUR #### [facility] [address] [place] [address] Dr. Cirilo RIVERA A micrscopic examination will be performed if indicated. Normal [facility] Comment on above: Performed By: #### E RUR #### [facility] [address] [place] [address] Dr. Cirilo Melendez Glucose Ql (U) Negative Normal NEGATIVE [facility] Comment on above: Performed By: #### E RUR #### [facility] [address] [place] [address] Dr. Cirilo Melendez Hemoglobin Ql (U) Negative Normal NEGATIVE [facility] Comment on above: Performed By: #### E RUR #### [facility] [address] [place] [address] Dr. Cirilo Melendez Ketones Ql (U) Negative Normal NEGATIVE [facility] Comment on above: Performed By: #### E RUR #### [facility] [address] [place] [address] Dr. Cirilo Melendez LEUKOCYTES Negative Normal NEGATIVE [facility] Comment on above: Performed By: #### E RUR #### [facility] [address] [place] [address] Dr. Cirilo Melendez Nitrite Ql (U) Negative Normal NEGATIVE [facility] Comment on above: Performed By: #### E RUR #### [facility] [address] [place] [address] Dr. Cirilo Melendez pH (U) 6.0 [pH] Normal 5-9 [facility] Comment on above: Performed By: #### E RUR #### [facility] [address] [place] [address] Dr. Cirilo Melendez SPEC GRAVITY 1.025 Normal 1.005-<=1.025 [facility] Comment on above: Performed By: #### E RUR #### [facility] [address] [place] [address] Dr. Cirilo Melendez UA PROTEIN Negative Normal NEGATIVE/ TRACE [facility] Comment on above: Performed By: #### E RUR #### [facility] [address] [place] [address] Dr. Cirilo Melendez UR MICRO IND NOT INDICATED Normal [facility] Comment on above: Performed By: #### E RUR #### [facility] [address] [place] [address] Dr. Cirilo Melendez Urobilinogen Qn (U) 0.2 {Gertrudis'U}/dL Normal 0.2 - 1.0 [facility] Comment on above: Performed By: #### E RUR #### [facility] [address] [place] [address] Dr. Cirilo Melendez LACTATE/LACTIC ACIDon 2021 Lactate [Moles/Vol] 0.6 mmol/L Critically low 0.7-2.0 [facility] Comment on above: Performed By: #### L ACT #### [facility] [address] [place] [address] Dr. Cirilo Melendez LIPASEon 08-04-2021 Lipase [Catalytic activity/Vol] 508.0 U/L Critically high 23.0-300.0 [facility] Comment on above: Performed By: #### C NELLIE CHI, LIZZY #### [facility] [address] [place] [address] Dr. Cirilo Melendez PROF 14(COMP METB)on 022 Albumin [Mass/Vol] 3.8 g/dL Normal 3.5-5.0 [facility] Comment on above: Performed By: #### C MP LIPA, LIZZY #### [facility] [address] [place] [address] Dr. Cirilo Melendez Albumin/Globulin [Mass ratio] 0.9 {ratio} [facility] Comment on above: Performed By: #### C ALON LIPA, LIZZY #### [facility] [address] [place] [address] Dr. Cirilo Melendez ALP [Catalytic activity/Vol] 74 U/L Normal 38-126 [facility] Comment on above: Performed By: #### C MP LIPA, LIZZY #### [facility] [address] [place] [address] Dr. Cirilo Melendez ALT [Catalytic activity/Vol] 45 U/L Normal 21-72 [facility] Comment on above: Performed By: #### C MP LIPA, LIZZY #### [facility] [address] [place] [address] Dr. Cirilo Melendez Anion gap [Moles/Vol] 10.0 mmol/L Normal [facility] Comment on above: Performed By: #### C MP LIPA, LIZZY #### [facility] [address] [address] [address] Cirilo Melendez AST [Catalytic activity/Vol] 16 U/L Critically low 17-59 [facility] Comment on above: Performed By: #### C MP, LIPA, LIZZY #### [facility] [address] [address] [address] Cirilo Melendez Bilirubin [Mass/Vol] 0.4 mg/dL Normal 0.2-1.3 [facility] Comment on above: Performed By: #### C MP, LIPA, LIZZY #### [facility] [address] [address] [address] Cirilo Melendez Calcium [Mass/Vol] 9.7 mg/dL Normal 8.4-10.2 [facility] Comment on above: Performed By: #### C MP, LIPA, LIZZY #### [facility] [address] [place] [address] Dr. Cirilo Melendez Chloride [Moles/Vol] 103 mmol/L Normal 98-107 [facility] Comment on above: Performed By: #### C MP, LIPA, LIZZY #### [facility] [address] [address] [address] Cirilo Melendez CO2 [Moles/Vol] 30.3 mmol/L Critically high 22.0-30.0 [facility] Comment on above: Performed By: #### C MP, LIPA, LIZZY #### [facility] [address] [address] [address] Cirilo Melendez Creatinine [Mass/Vol] 1.13 mg/dL Normal 0.66-1.25 [facility] Comment on above: Performed By: #### C MP, LIPA, LIZZY #### [facility] [address] [address] [address] Cirilo Melendez EGFR-AF TOGOLESE >60 Normal >=60 [facility] Comment on above: Performed By: #### C MP, LIPA, LIZZY #### [facility] [address] [address] [address] Cirilo Melendez EGFR-NON AF TOGOLESE >60 Normal >=60 [facility] Comment on above: Performed By: #### C MP, LIPA, LIZZY #### [facility] [address] [address] [address] Cirilo Melendez Globulin (S) [Mass/Vol] 4.3 g/dL Normal [facility] Comment on above: Performed By: #### C MP, LIPA, LIZZY #### [facility] [address] [place] [address] Dr. Cirilo Melendez Glucose [Mass/Vol] 121 mg/dL Critically high 74-106 [facility] Comment on above: Performed By: #### C MP, LIPA, LIZZY #### [facility] [address] [address] [address] Cirilo Melendez Potassium [Moles/Vol] 4.3 mmol/L Normal 3.4-5.0 [facility] Comment on above: Performed By: #### C MP, LIPA, LIZZY #### [facility] [address] [place] [address] Dr. Cirilo Melendez Protein [Mass/Vol] 8.1 g/dL Normal 6.1-8.2 [facility] Comment on above: Performed By: #### C MP LIPA, LIZZY #### [facility] [address] [place] [address] Dr. Cirilo Melendez Sodium [Moles/Vol] 139 mmol/L Normal 137-145 [facility] Comment on above: Performed By: #### C MP, LIPA, LIZZY #### [facility] [address] [place] [address] Dr. Cirilo Melendez Urea nitrogen [Mass/Vol] 9.0 mg/dL Normal 9.0-20.0 [facility] Comment on above: Performed By: #### C MP, LIPA, LIZZY #### [facility] [address] [place] [address] Dr. Cirilo Melendez Urea nitrogen/Creatinin e [Mass ratio] 8.0 mg/mg Normal [facility] Comment on above: Performed By: #### C MP, LIPA, LIZZY #### [facility] [address] [place] [address] Dr. Cirilo Melendez PROTIMEon 08-04-2021 INR Coag (PPP) [Relative time] 1.03 {INR} Normal [facility] Comment on above: Performed By: #### P TT, PT #### [facility] [address] [place] [address] Dr. Cirilo Melendez INR GUIDELINES SEE BELOW Normal [facility] Comment on above: Result Comment: MIREYA RED INR: 2.0 - 3.0 CONDITIONS NOT LISTED BELOW 2.5 - 3.5 FOR PROSTHETIC HEART VALVE REPLACEMENT 2.5 - 3.5 RECURRENT THROMBOSIS Performed By: #### P TT, PT #### [facility] [address] [place] [address] Dr. Cirilo Melendez PT Coag (PPP) [Time] 11.1 s Normal 9.0-11.6 [facility] Comment on above: Performed By: #### P TT, PT #### [facility] [address] [place] [address] Dr. Cirilo Melendez PTTon 08-04-2021 aPTT Coag (Bld) [Time] 28.2 s Normal 22.3-36.2 [facility] Comment on above: Performed By: #### P TT, PT #### [facility] [address] [place] [address] Dr. Cirilo Melendez Vital Signs Date Time Vital Sign Value Performing Clinician Facility 08-08-2024 13:26-0500 Blood Pressure Location Ziggy AGUAYO [facility] [place] 08-08-2024 13:26-0500 Diastolic blood pressure 70 mm[Hg] Ziggy AGUAYO [facility] [place] 08-08-2024 13:26-0500 Heart rate 70 /min Ziggy AGUAYO [facility] [place] 08-08-2024 13:26-0500 Respiratory rate 16 /min Ziggy AGUAYO [facility] [place] 08-08-2024 13:26-0500 Systolic blood pressure 116 mm[Hg] Ziggy AGUAYO [facility] [place] 10-13-2022 11:30-0400 Body height 182.88 cm Víctor Mendez Other [facility] Other 10-13-2022 11:30-0400 Body mass index (BMI) [Ratio] 24 kg/m2 Víctor Mendez Other [facility] Other 10-13-2022 11:30-0400 Body weight 80.29 kg Víctor Mendez Other [facility] Other 10-13-2022 11:30-0400 Diastolic blood pressure 73 mm[Hg] Víctor Mendez Other [employer] [facility] Other 10-13-2022 11:30-0400 Systolic blood pressure 120 mm[Hg] Víctor Mendez Other [employer] Other Encounters Encounter Date Encounter Type Care Provider Facility Start: 08-29-2024 End: 08-29-2024 ambulatory Ziggy Aguayo [facility] Work Phone: Start: 08-29-2024 End: 08-29-2024 Departed Referred Ziggy Aguayo MD Work Phone: [facility] [place] [facility] Start: 08-08-2024 End: 08-08-2024 ambulatory ROMARIO BEBE Facility:[facility] [place] Start: 08-08-2024 End: 08-08-2024 Patient encounter procedure Ziggy AGUAYO [facility] [place] Start: 07-10-2024 ambulatory ROMARIO BEBE Facility:[facility] [place] Start: 06-20-2024 End: 06-20-2024 ambulatory ROMARIO BEBE [facility] Start: 10-13-2022 End: 10-13-2022 ambulatory Víctor Mendez Other [employer] Other Start: 10-13-2022 Office outpatient ne w 45 minutes Víctor Mendez [facility] Start: 05-24-[address] DOCTOR ODELL Facility :[facility] Start: 05-04-2022 End: 05-05-[address] DOCTOR ODELL Facility:[facility] Start: 04-06-2022 End: 04-07-2022 ambulatory SHIRLEY ZHANG Facility:[facility] Start: 04-05-2022 End: 04-05-[address] SHELLY MONROY Facility:[facility] Start: 08-04-2021 End: 08-05-2021 ambulatory ANAHI SOTO Facility:[facility] Procedures Date Procedure Procedure Detail Performing Clinician None (qualifier value) Denny AGUAYO Payers Date Payer Category Payer Self-pay 1980 Unknown [id number] 2.16.84 [id number] 1980 Unknown [id number] 2.16.84 [id number] 1980 Unknown [id number] 2.16.84 [id number] 1980 Unknown [id number] 2.16.84 [id number] 1980 Unknown [id number] 2.16.84 [id number] 1980 Unknown [id number] 2.16.8 [id number] 1980 Unknown [id number] 2.16.8 [id number] 1958 Unknown [id number] Medicaid [id number] 2. [id number] Unknown Sis BC/BS [id number] Unknown [id number] 2.16.8 [id number] Social History Date Type Detail Facility Sex Assigned At [facility] Start: 08-08-2024 Tobacco smoking status Smokes tobacco daily (finding) [facility] [place] Tobacco smoking status Never [facility] [place] Tobacco smoking stat [facility] Unknown if ever smoked [facility] Work Phone: Start: 08-30-2024 Sex Male (finding) [facility] Start: 1980 Sex Assigned At Male [facility] Functional Status Date Assessment Result Facility 08-08-2024 Functional Status N/A [facility] [place] Clinical Note 08-08-2024 Note Date & Type [...] plan excisional biopsy under local anesthesia at [facility] for definitive diagnosis and treatment; informed [...] Primary malignant neoplasm of female breast: Mother. [facility] Comment on above: Result Comment: Elec tronically Signed By: JOSIANE CANNON, Ziggy Cheung\Date and Time Signed: 08/08/24 14:09 EST Evaluation note 10-13-2022 Note Date & Type Note Facility 10-13-2022 Evaluation note Encounter Date Diagnosis Assessment Notes Sep, Liver lesion (ICD-10 - K76.9) Sep, Chronic pancreatitis (ICD-10 - K86.1) [facility] Other Clinical Note 05-04-2022 Note Date & [...] by: PIPER FRANKEL Date: 2022-05-04 16:34 [facility] Evaluation + Plan note Note Date & Type Note Facility Evaluation + Plan note No data available for this section [facility] [place] Evaluation note Note Date & Type Note Facility Evaluation note No assessment information availa [facility] Work Phone: History general Narrative - Reported Note Date & Type Note Facility History general Narrative - Reported Type Medical History alcohol abuse [facility] Other Hospital Discharge instructions Note Date & Type Note Facility Hospital Discharge instructions No data available for this section [facility] Progress note Note Date & Type Note Facility Progress note No data available for this section [facility] [place] Summary Purpose Family History No Family History Records FoundNo Family History Records Found No data available for this section No Family History Records FoundNo Family History Records Found Advance Directives No Advanced Directives Records FoundNo Advanced Directives Records FoundNo Advanced Directives Records FoundNo Advanced Directives Records Found Additional Source Comments (unrecognized sect ion and content) No Status Records FoundNo Status Records FoundNo Status Records FoundNo Status Records Found INFORMATION SOURCE (unrecogn ized section and content) DATE CREATED AUTHOR 05/20/2022 [facility] DATE CREATED AUTHOR AUTHOR'S ORGANIZ ATION 06/23/2024 [facility] DATE CREATED AUTHOR AUTHOR'S ORGANIZ ATION 08/11/2024 [facility] DATE CREATED AUTHOR AUTHOR'S ORGANIZ ATION 08/31/2024 [facility] REASON FOR VISIT (unrecogniz ed section and content) PATIENT HERE AT THE REQUEST OF DR. JANN ALBERTO FOR LIVER MASS AND CHRONIC PANCREATITIS/PER [facility] DOUBLE BOOK Patient Care team informatio n (unrecognized section and content) Team Status: Inactive Member Role Status Dates Ziggy Aguayo MD FACS Attending Provider Active Start: August 29, 2024 End: August 29, 2024 Goals (unrecognized section and content) Goals may be documented in a n alternate section FOR RECORDS PERTAINING TO PATIENTS WHO ARE [...] BE BASED ON THE PRIMARY CLINICAL RECORDS. [facility]. provides no warranty or guarantee of the accuracy or completeness of information in this document.
[2024-09-04 19:44] VITALS: BP 109/65; TEMP 38.6; O2SAT 97; BMI 23.5
[2024-09-04 20:07] LABS: Influenza Virus A Antigen Negative; Influenza Virus B Antigen Negative; Internal Control Within Normal Limits; SARS-CoV-2 Ag NEGATIVE (NEGATIVE)
--- NOTE | 2024-09-04 21:31 | ED_ITS ---
HPI HPI - General Adult General Chief complaint: Fever Stated complaint: body aches, sore throat Time Seen by Provider: 09/04/24 21:26 Source: patient Mode of arrival: walk-in Limitations: no limitations History of Present Illness HPI narrative: 44-year-old male presents to the emergency department for fever and bodyaches and cough. He also has a sore throat and his symptoms started yesterday. No vomiting or diarrhea but he has not been eating much. He was around his nephew who had similar symptoms. Related Data Home Medications ?Medication ?Instructions ?Recorded ?Confirmed cholecalciferol (vitamin D3) 1,250 50,000 unit PO QWEEK 08/20/24 08/29/24 mcg (50,000 unit) capsule Previous Rx's ?Medication ?Instructions ?Recorded ibuprofen 800 mg tablet 800 mg PO Q8H PRN pain #15 tabs 08/29/24 Allergies Allergy/AdvReac Type Severity Reaction Status Date / Time No Known Drug Allergies Allergy Verified 09/04/24 19:43 Opioid HPI Opioid Management Most Recent Opioid Data: No Data to Display Review of Systems ROS Narrative A ten point review of systems is negative except as noted above. [facility] Medical History (Updated 09/04/24 @ 22:17 by Nghia Farnsworth MD) Vitamin D deficiency ?E55.9 - Vitamin D deficiency, unspecified (ICD-10) Lipoma of right lower extremity ?D17.23 - Benign lipomatous neoplasm of skin and subcutaneous tissue of right leg (ICD-10) Lesion of liver ?K76.9 - Liver disease, unspecified (ICD-10) GERD (gastroesophageal reflux disease) ?K21.9 - Gastro-esophageal reflux disease without esophagitis (ICD-10) Chronic pancreatitis ?K86.1 - Other chronic pancreatitis (ICD-10) Family History (Updated 08/23/24 @ 13:23 by Coco Pierson) Mother Breast cancer Grandfather Prostate cancer Social History (Updated 08/29/24 @ 09:55 by Betsy Cat) Within the past year, how often did you have a drink containing alcohol: monthly or less Within the past year, how many standard drinks containing alcohol did you have on a typical day: 1 or 2 Total score: 0 Score interpretation: A score less than 4 is consistent with normal alcohol consumption. Smoking status: Current some day smoker Non-prescribed substance use: cannabis (any form) Non-prescribed substance use details: 3 to 5 times a week Highest level of school completed/degree received: high school graduate Little interest or pleasure in doing things: not at all Feeling down, depressed, or hopeless: not at all Exam Narrative Exam Narrative: Nurses note and vital signs reviewed and patient is not hypoxic. General: The patient appears in no apparent distress. Skin: Warm, dry, no pallor noted. There is no rash noted. Head: Normocephalic, atraumatic Eye: Normal conjunctiva, no drainage Ears, Nose, Mouth, and Throat: oral mucosa is moist. Nares patent. No family erythema or exudate. Uvula midline. Cardiovascular: Regular Rate and Rhythm Respiratory: Patient is in no distress, no accessory muscle use, lungs are clear to auscultation, no wheezing, rales or rhonchi Back: non-tender GI: Soft and nontender Musculoskeletal: Right hip surgical wound appears appropriate. There is no erythema or drainage or dehiscence. Neurological: A&O, normal speech Psychiatric: Cooperative Constitutional Vital Signs, click to edit/add: Last Vital Signs Temp 101.5 F H 09/04/24 19:44 Pulse 99 H 09/04/24 21:46 Resp 18 09/04/24 19:44 BP 109/65 09/04/24 19:44 Pulse Ox 97 09/04/24 19:44 O2 Del Method Room Air 09/04/24 19:44 Course Vital Signs Vital signs: Vital Signs Temperature 101.5 F H 09/04/24 19:44 Respiratory Rate 18 09/04/24 19:44 Blood Pressure 109/65 09/04/24 19:44 Pulse Oximetry 97 09/04/24 19:44 Oxygen Delivery Method Room Air 09/04/24 19:44 Temperature 101.5 F H 09/04/24 19:44 Pulse Rate 99 H 09/04/24 21:46 Respiratory Rate 18 09/04/24 19:44 Blood Pressure 109/65 09/04/24 19:44 Pulse Oximetry 97 09/04/24 19:44 Oxygen Delivery Method Room Air 09/04/24 19:44 Medical Decision Making MDM Narrative Medical decision making narrative: COVID, influenza, and strep are negative. He was treated symptomatically here with IM Toradol and oral Tylenol. My clinical impression is that he has a viral illness. Antibiotic not indicated. Treatment diagnosis and follow-up were discussed with the patient. Differential Diagnosis Differential Diagnosis: COVID, influenza, strep throat, viral illness Lab Data Lab results reviewed: Yes I reviewed the patient's lab results Labs: Lab Results 09/04/24 09/04/24 Range/Units 19:48 21:35 Influenza Type A Ag Negative Influenza Type B Ag Negative SARS-CoV-2 Ag (CV2AG) Negative (NEGATIVE) Streptococcus Screen Negative Discharge Plan Discharge Chief Complaint: Fever Clinical Impression: Viral syndrome Patient Disposition: Home, Self-Care Time of Disposition Decision: 22:17 Condition: Good Mode of Transportation: Private Vehicle Prescriptions / Home Meds: No Action cholecalciferol (vitamin D3) 1,250 mcg (50,000 unit) capsule 50,000 unit PO QWEEK ibuprofen 800 mg tablet 800 mg PO Q8H PRN (Reason: pain) Qty: 15 0RF Print Language: [place] Instructions: Viral Syndrome (ED) Referrals: Physician,Non-Staff, MD [Primary Care Provider] - 1 week
[2024-09-04] MEDS: ACETAMINOPHEN 325 MG TABLET 650 MG PO (21:38)
[2024-09-04] MEDS: KETOROLAC TROMETHAMINE 60 MG/2 ML VIAL IM (21:38)
[2024-09-04 21:46] VITALS: PULSE 99
[2024-09-04 21:56] LABS: Internal Control Within Normal Limits; Strep A Antigen Screen Negative
[2024-09-04 22:19] VITALS: TEMP 37.7
== END 2024-09-04 22:26 | disposition home or self-care (01) ==
PROVIDERS: Emergency Provider Emergency Medicine
DX: B34.9 Viral infection, unspecified (principal); R50.9 Fever, unspecified; F17.200 Nicotine dependence, unspecified, uncomplicated
CPT/HCPCS: 87070; 87804; 87811; 87880; 96372; 99285; J1885

== ENCOUNTER 2025-02-27 18:46 | Emergency (ER) | payer SELFPAY ==
--- OUTSIDE RECORDS SUMMARY | 2025-02-27 18:59 | XMS_ITS | CCD ---
Author Organization [facility] Care Team Providers Care Labor Conciliator Name Role Phone CASS, DR BOYCE Primary [...] SHIRLEY ZHANG Consulting Unavailable Víctor Mendez Unavailable [phone] BEBE, ROMARIO Referring Unavailable SERVICES, [facility] Primary Care Unava ilable BEBE, ROMARIO Primary Care Physician [phone] Ziggy Aguayo MD Attending Provider Ziggy Aguayo Attending Unavailable Ziggy Aguayo Admitting Unavailable BEBE, ROMARIO Primary Care Unavailable BEBE, ROMARIO Primary Care Unavailable Ziggy AGUAYO Attending Unavailable BEBE, ROMARIO Primary Care Unavailable BEBE, ROMARIO Referring Unavailable Ziggy AGUAYO Attending Unavailable BEBE, ROMARIO Primary Care Unavailable Ziggy AGUAYO Attending Unavailable Allergies Allergy Classification Reported Allergen(s) Allergy Type Date of Onset Reaction(s) Facility (1 source) No Known Medication Allergies; Translations: [No Known Medication Allergies] Propensity to adverse reactions (disorder) [facility] Repository Medications Current Medications Medication Drug Class(es) Dates Sig (Normalized) Sig (Original) Vitamin D3 50,000 intl units oral capsule (2 sources) Start: 07-17-2024 take 1 capsule by mouth [...] BRKDWN SKN] Onset: 2 Chronic Esophageal disorders (3 sources) Gastroesophageal reflux disease; Translations: [Gastro-esophageal reflux disease without esophagitis] 07-17-2024 Chronic Mycoses (5 sources) Tinea pedis; Translations: [TINEA PEDIS] Onset: 2 Episodic Nutritional deficiencies (2 sources) Vitamin D deficiency 07-17-2024 Chronic Open wounds [...] 5 Episodic Other and unspecified benign neoplasm (2 sources) Lipoma of right lower limb 07-17-2024 Episodic Other connective tissue disease (4 sources) Pain in left foot; Translations: [PAIN IN LEFT FOOT] Onset: 2 Episodic Other gastrointestinal disorders (1 source) Constipation; Translations: [Constipation, unspecified] Episodic Other liver diseases (1 source) Focal nodular hyperplasia of liver; Translations: [Other specified diseases of liver] Chronic Other liver diseases (3 sources) Lesion of liver; Translations: [Liver disease, unspecified] 07-17-2024 Chronic Other liver diseases (1 source) Liver disease, unspecified Chronic Other skin disorders (1 source) Corns and callosities; Translations: [CORNS AND CALLOSITIES] Onset: 2 Episodic Other skin disorders (1 source) Localized swelling, mass and lump, right lower limb; Translations: [Localized swelling, mass and lump, right lower limb] Onset: 4 Episodic Pancreatic disorders (not diabetes) (4 sources) Chronic pancreatitis; Translations: [Other chronic pancreatitis] Chronic Residual codes; unclassified (2 sources) Tobacco user 08-08-2024 Episodic Substance-related disorders (1 [...] [id number] Received: 08/29/24 Status: ARABELLA Ashley Num: [id number] Spec Type: Surgical Subm Dr: Ziggy Aguayo MD FACS Tissues: A Lipoma (RT THIGH) Procedures: VALENTIN, Gross/Micro L3 ---- Age/ Patient Sex Location Account Attending Physician ---- Abraham Gomez 44/M LABELL [id number] Ziggy Aguayo MD FACS ---- SPEC NUM: [id number] RECD: 08/29/24 STATUS: ARABELLA RAMIREZ NUM: [id number] OVI: 08/29/24 [facility] DR: Ziggy Aguayo MD FACS ENTERED: 08/29/[address]: Lenin,Karime SPEC TYPE: Surgical DEPT: TERRI LYNN ORDERED: [...] areas of hemorrhage or necrosis are present. Teletypist sections are submitted in A1. TW ---- Specimen: [id number] Received: 08/29/24 Status: ARABELLA Ramirez Num: [id number] Spec Type: Surgical Subm Dr: Ziggy Aguayo MD FACS Tissues: A Lipoma (RT THIGH) Procedures: Sharad HANSON/Diony L3 ---- Patient: Abraham Gomez [id number] (Continued) ---- Specimen: [id number] Received: 08/29/24 (Continued) Signed (signature on file) Joshua Melendez MD 08/30/24 165 ---- Specimen: [id number] Received: 08/29/24 Status: ARABELLA Ramirze Num: [id number] Spec Type: Surgical Subm Dr: Ziggy Aguayo MD FACS Tissues: A Lipoma (RT THIGH) Procedures: Sharad HANSON/Diony L3 ---- Patient: Abraham Gomez [id number] (Continued) ---- Specimen: [id number] Received: 08/29/24 (Continued) Microscopic Description Microscopic examinations are performed supporting the above interpretation CPT Codes 73652 ---- ---- Specimen: [id number] Received: 08/29/24 Status: ARABELLA Ramirez Num: [id number] Spec Type: Surgical Subm Dr: Ziggy Aguayo MD FACS Tissues: A Lipoma (RT THIGH) Procedures: VALENTIN, Gross/Micro L3 ---- Patient: Abraham Gomez [id number] (Continued) ---- Signed (signature on file) Phi-Cory Melendez MD 08/30/24 1651 Normal [facility] Ambulatory Visit Summaryon 0 08-08-2024 [...] you for choosing us for your care. [facility] US EXT NON-VASC RT LIMITEDon 06-23-2024 [...] Pop MD on 06/23/2024 9:40 AM Normal [facility] XR FOOT LT MIN 3 VIEWSon [...] JERICA REEVES Date: 2022-04-05 01:19 Normal [facility] AMYLASEon 08-04-2021 Amylase [Catalytic activity/Vol] 128 U/L Critically high 31-110 [facility] Comment on above: Performed By: #### C MP, LIPA, LIZZY #### [facility] [address] [address] [address] Cirilo Melendez CBC AUTO DIFFon 08-04-2021 BASO # 0.0 103/ul Normal 0.0-0.1 [facility] Comment on above: Performed By: #### C BC #### [facility] [address] [address] [address] Cirilo Melendez Basophils/100 WBC (Bld) 0.4 % Normal 0.2-2.0 [facility] Comment on above: Performed By: #### C BC #### [facility] [address] [place] [address] Dr. Cirilo Melendez EO # 0.1 103/ul Normal 0.0-0.7 [facility] Comment on above: Performed By: #### C BC #### [facility] [address] [place] [address] Dr. Cirilo Melendez Eosinophils/100 WBC (Bld) 0.8 % Critically low 0.9-7.0 [facility] Comment on above: Performed By: #### C BC #### [facility] [address] [place] [address] Dr. Cirilo Melendez Erythrocyte distribution width (RBC) [Ratio] 13.9 % Normal 11.0-15.0 [facility] Comment on above: Performed By: #### C BC #### [facility] [address] [place] [address] Dr. Cirilo Melendez Hematocrit (Bld) [Volume fraction] 45.0 % Normal 42.0-54.0 [facility] Comment on above: Performed By: #### C BC #### [facility] [address] [place] [address] Dr. Cirilo Melendez Hemoglobin (Bld) [Mass/Vol] 15.2 g/dL Normal 14.0-18.0 [facility] Comment on above: Performed By: #### C BC #### [facility] [address] [place] [address] Dr. Cirilo Melendez IG # 0.04 10e3/ul Critically high 0.00-0.03 [facility] Comment on above: Performed By: #### C BC #### [facility] [address] [place] [address] Dr. Cirilo Melendez IG % 0.4 % Normal 0.0-0.5 [facility] Comment on above: Performed By: #### C BC #### [facility] [address] [place] [address] Dr. Cirilo Melendez LYMPH # 2.5 103/ul Normal 1.2-3.8 [facility] Comment on above: Performed By: #### C BC #### [facility] [address] [place] [address] Dr. Cirilo Melendez Lymphocytes/100 WBC (Bld) 27.6 % Normal 20.5-60.0 [facility] Comment on above: Performed By: #### C BC #### [facility] [address] [place] [address] Dr. Cirilo Melendez MANUAL DIFF REQ NO Normal [facility] Comment on above: Performed By: #### C BC #### [facility] [address] [place] [address] Dr. Cirilo Melendez MCH (RBC) [Entitic mass] 30.5 pg Normal 25.9-34.0 [facility] Comment on above: Performed By: #### C BC #### [facility] [address] [place] [address] Dr. Cirilo Melendez MCHC (RBC) [Mass/Vol] 33.8 g/dL Normal 29.9-35.2 [facility] Comment on above: Performed By: #### C BC #### [facility] [address] [place] [address] Dr. Cirilo Melendez MCV (RBC) [Entitic vol] 90.2 fL Normal 80.0-94.0 [facility] Comment on above: Performed By: #### C BC #### [facility] [address] [place] [address] Dr. Cirilo Melendez MONO # 0.8 103/ul Normal 0.3-0.8 [facility] Comment on above: Performed By: #### C BC #### [facility] [address] [place] [address] Dr. Cirilo Melendez Monocytes/100 WBC (Bld) 8.7 % Normal 1.7-12.0 [facility] Comment on above: Performed By: #### C BC #### [facility] [address] [place] [address] Dr. Cirilo Melendez NEUT # 5.6 103/ul Normal 1.4-6.5 [facility] Comment on above: Performed By: #### C BC #### [facility] [address] [place] [address] Dr. Cirilo Melendez Neutrophils/100 WBC (Bld) 62.1 % Normal 43.0-75.0 [facility] Comment on above: Performed By: #### C BC #### [facility] [address] [place] [address] Dr. Cirilo Melendez Platelet mean volume (Bld) [Entitic vol] 9.4 fL Critically low 9.5-13.5 [facility] Comment on above: Performed By: #### C BC #### [facility] [address] [place] [address] Dr. Cirilo Melendez PLT 272 103/ul Normal 150-450 [facility] Comment on above: Performed By: #### C BC #### [facility] [address] [place] [address] Dr. Cirilo Melendez RBC 4.99 106/ul Normal 4.70-6.10 [facility] Comment on above: Performed By: #### C BC #### [facility] [address] [place] [address] Dr. Cirilo Melendez WBC 9.1 103/ul Normal 4.0-11.0 [facility] Comment on above: Performed By: #### C BC #### [facility] [address] [place] [address] Dr. Cirilo Melendez ER URINE PROFILEon 2 Bilirubin Ql (U) Negative Normal NEGATIVE [facility] Comment on above: Performed By: #### E RUR #### [facility] [address] [place] [address] Dr. Cirilo Melendez Clarity (U) CLEAR Normal CLEAR [facility] Comment on above: Performed By: #### E RUR #### [facility] [address] [place] [address] Dr. Cirilo Melendez Color (U) YELLOW Normal YELLOW [facility] Comment on above: Performed By: #### E RUR #### [facility] [address] [place] [address] Dr. Cirilo Melendez ERUKATY A micrscopic examination will be performed if indicated. Normal [facility] Comment on above: Performed By: #### E RUR #### [facility] [address] [place] [address] Dr. Cirilo Melendez Glucose Ql (U) Negative Normal NEGATIVE [facility] Comment on above: Performed By: #### E RUR #### [facility] [address] [place] [address] Dr. Cirilo Melendez Hemoglobin Ql (U) Negative Normal NEGATIVE [facility] Comment on above: Performed By: #### E RUR #### [facility] [address] [place] [address] Dr. Cirilo Melendez Ketones Ql (U) Negative Normal NEGATIVE [facility] Comment on above: Performed By: #### E RUR #### [facility] [address] [place] [address] Dr. Cirilo Melendez LEUKOCYTES Negative Normal NEGATIVE [facility] Comment on above: Performed By: #### E RUR #### [facility] [address] [place] [address] Dr. Cirilo Melendez Nitrite Ql (U) Negative Normal NEGATIVE [facility] Comment on above: Performed By: #### E RUR #### [facility] [address] [place] [address] Dr. Cirilo Melendez pH (U) 6.0 [pH] Normal 5-9 [facility] Comment on above: Performed By: #### E RUR #### [facility] [address] [place] [address] Dr. Cirilo Melendez SPEC GRAVITY 1.025 Normal 1.005-<=1.025 [facility] Comment on above: Performed By: #### E RUR #### [facility] [address] [place] [address] Dr. Cirilo Melendez UA PROTEIN Negative Normal NEGATIVE/ TRACE [facility] Comment on above: Performed By: #### E RUR #### [facility] [address] [place] [address] Dr. Cirilo Melendez UR MICRO IND NOT INDICATED Normal [facility] Comment on above: Performed By: #### E RUR #### [facility] [address] [place] [address] Dr. Cirilo Melendez Urobilinogen Qn (U) 0.2 {Gertrudis'U}/dL Normal 0.2 - 1.0 [facility] Comment on above: Performed By: #### E RUR #### [facility] [address] [place] [address] Dr. Cirilo Melendez LACTATE/LACTIC ACIDon 2021 Lactate [Moles/Vol] 0.6 mmol/L Critically low 0.7-2.0 [facility] Comment on above: Performed By: #### L ACT #### [facility] [address] [place] [address] Dr. Cirilo Melendez LIPASEon 08-04-2021 Lipase [Catalytic activity/Vol] 508.0 U/L Critically high 23.0-300.0 [facility] Comment on above: Performed By: #### C MP LIPA, LIZZY #### [facility] [address] [place] [address] Dr. Cirilo Melendez PROF 14(COMP METB)on 022 Albumin [Mass/Vol] 3.8 g/dL Normal 3.5-5.0 [facility] Comment on above: Performed By: #### C ALON LIPA, LIZZY #### [facility] [address] [place] [address] Dr. Cirilo Melendez Albumin/Globulin [Mass ratio] 0.9 {ratio} Normal [facility] Comment on above: Performed By: #### C MP LIPA, LIZZY #### [facility] [address] [place] [address] Dr. Cirilo Melendez ALP [Catalytic activity/Vol] 74 U/L Normal 38-126 [facility] Comment on above: Performed By: #### C MP LIPA, LIZZY #### [facility] [address] [place] [address] Dr. Cirilo Melendez ALT [Catalytic activity/Vol] 45 U/L Normal 21-72 [facility] Comment on above: Performed By: #### C MP LIPA, LIZZY #### [facility] [address] [place] [address] Dr. Cirilo Melendez Anion gap [Moles/Vol] 10.0 mmol/L Normal [facility] Comment on above: Performed By: #### C NELLIE CHI LIZZY #### [facility] [address] [address] [address] Cirilo Melendez AST [Catalytic activity/Vol] 16 U/L Critically low 17-59 [facility] Comment on above: Performed By: #### C NELLIE CHI, LIZZY #### [facility] [address] [address] [address] Cirilo Melendez Bilirubin [Mass/Vol] 0.4 mg/dL Normal 0.2-1.3 [facility] Comment on above: Performed By: #### C NELLIE CHI, LIZZY #### [facility] [address] [address] [address] Cirilo Melendez Calcium [Mass/Vol] 9.7 mg/dL Normal 8.4-10.[address] [facility] Comment on above: Performed By: #### C NELLIE CHI, LIZZY #### [facility] [address] [place] [address] Dr. Cirilo Melendez Chloride [Moles/Vol] 103 mmol/L Normal 98-107 [facility] Comment on above: Performed By: #### C NELLIE CHI, LIZZY #### [facility] [address] [address] [address] Cirilo Melendez CO2 [Moles/Vol] 30.3 mmol/L Critically high 22.0-30.0 [facility] Comment on above: Performed By: #### C NELLIE CHI, LIZZY #### [facility] [address] [place] [address] Dr. Cirilo Melendez Creatinine [Mass/Vol] 1.13 mg/dL Normal 0.66-1.25 [facility] Comment on above: Performed By: #### C NELLIE CHI, LIZZY #### [facility] [address] [address] [address] Cirilo Melendez EGFR-AF SIERRA LEONEAN >60 Normal >=60 [facility] Comment on above: Performed By: #### C NELLIE CHI, LIZZY #### [facility] [address] [address] [address] Cirilo Melendez EGFR-NON AF SIERRA LEONEAN >60 Normal >=60 [facility] Comment on above: Performed By: #### C NELLIE CHI, LIZZY #### [facility] [address] [address] [address] Cirilo Melendez Globulin (S) [Mass/Vol] 4.3 g/dL Normal [facility] Comment on above: Performed By: #### C NELLIE CHI, LIZZY #### [facility] [address] [place] [address] Dr. Cirilo Melendez Glucose [Mass/Vol] 121 mg/dL Critically high 74-[address] [facility] Comment on above: Performed By: #### C NELLIE CHI, LIZZY #### [facility] [address] [place] [address] Dr. Cirilo Melendez Potassium [Moles/Vol] 4.3 mmol/L Normal 3.4-5.0 [facility] Comment on above: Performed By: #### C MICHELLE CHIA, LIZZY #### [facility] [address] [place] [address] Dr. Cirilo Melendez Protein [Mass/Vol] 8.1 g/dL Normal 6.1-8.[address] [facility] Comment on above: Performed By: #### C NELLIE CHI, LIZZY #### [facility] [address] [place] [address] Dr. Cirilo Melendez Sodium [Moles/Vol] 139 mmol/L Normal 137-[address] [facility] Comment on above: Performed By: #### C MICHELLE CHIA, LIZZY #### [facility] [address] [place] [address] Dr. Cirilo Melendez Urea nitrogen [Mass/Vol] 9.0 mg/dL Normal 9.0-20.0 [facility] Comment on above: Performed By: #### C MICHELLE CHIA, LIZZY #### [facility] [address] [place] [address] Dr. Cirilo Melendez Urea nitrogen/Creatinin e [Mass ratio] 8.0 mg/mg Normal [facility] Comment on above: Performed By: #### C MP, LIPA, LIZZY #### [facility] [address] [address] [address] Cirilo Melendez PROTIMEon 08-04-2021 INR Coag (PPP) [Relative time] 1.03 {INR} Normal [facility] Comment on above: Performed By: #### P TT, PT #### [facility] [address] [place] [address] Dr. Cirilo Melendez INR GUIDELINES SEE BELOW Normal [facility] Comment on above: Result Comment: MIREYA RED INR: 2.0 - 3.0 CONDITIONS NOT LISTED BELOW 2.5 - 3.5 FOR PROSTHETIC HEART VALVE REPLACEMENT 2.5 - 3.5 RECURRENT THROMBOSIS Performed By: #### P TT, PT #### [facility] [address] [place] [address] Dr. Cirilo Melendez PT Coag (PPP) [Time] 11.1 s Normal 9.0-11.6 [facility] Comment on above: Performed By: #### P TT, PT #### [facility] [address] [place] [address] Dr. Cirilo Melendez PTTon 08-04-2021 aPTT Coag (Bld) [Time] 28.2 s Normal 22.3-36.2 [facility] Comment on above: Performed By: #### P TT, PT #### [facility] [address] [place] [address] Dr. Cirilo Melendez Vital Signs Date Time Vital Sign Value Performing Clinician Facility 08-08-2024 13:26-0500 Blood Pressure Location Ziggy AGUAYO [facility] 08-08-2024 13:26-0500 Diastolic blood pressure 70 mm[Hg] Ziggy AGUAYO [facility] 08-08-2024 13:26-0500 Heart rate 70 /min Ziggy AGUAYO [facility] 08-08-2024 13:26-0500 Respiratory rate 16 /min Ziggy AGUAYO [facility] 08-08-2024 13:26-0500 Systolic blood pressure 116 mm[Hg] Ziggy AGUAYO [facility] 10-13-2022 11:30-0400 Body height 182.88 cm Víctor Mendez [facility] Other 10-13-2022 11:30-0400 Body mass index (BMI) [Ratio] 24 kg/m2 Víctor Mendez [facility] Other 10-13-2022 11:30-0400 Body weight 80.29 kg Víctor Mendez [facility] Other 10-13-2022 11:30-0400 Diastolic blood pressure 73 mm[Hg] Víctor Mendez [facility] Other 10-13-2022 11:30-0400 Systolic blood pressure 120 mm[Hg] Víctor Mendez [facility] Other Encounters Encounter Date Encounter Type Care Provider Facility Start: 09-12-2024 End: 09-12-2024 ambulatory ROMARIO WASHINGTONEEL Facility:[facility] Start: 09-12-2024 End: 09-12-2024 Patient encounter procedure Ziggy AGUAYO [facility] Start: 08-29-2024 End: 08-29-2024 ambulatory Ziggy Aguayo [facility] Work Phone: Start: 08-29-2024 End: 08-29-2024 Departed Referred Ziggy Aguayo MD Work Phone: [facility] Start: 08-29-2024 End: 08-29-2024 ambulatory ROMARIO BEBE Facility:[id number] Start: 08-08-2024 End: 08-08-2024 ambulatory ROMARIO BEBE Facility:[facility] Start: 08-08-2024 End: 08-08-2024 Patient encounter procedure Ziggy Ngo JOSIANE [facility] Start: 07-10-2024 ambulatory ROMARIO BEBE Facility:[facility] Phelps Start: 06-20-2024 End: 06-20-2024 ambulatory ROMARIO BEBE Mary carpenter Start: 10-13-2022 End: 10-13-2022 ambulatory Víctor Mendez [facility] Other Start: 10-13-2022 Office outpatient ne w 45 minutes Víctor Mendez [facility] Start: 05-24-[address] DOCTOR ODELL Facility :[facility] Start: 05-04-2022 End: 05-05-[address] DOCTOR ODELL Facility:[facility] Start: 04-06-2022 End: 04-07-2022 ambulatory SHIRLEY ZHANG Facility:[facility] Start: 04-05-2022 End: 04-05-[address] SHELLY MONROY Facility:[facility] Start: 08-04-2021 End: 08-05-2021 ambulatory ANAHI SOTO Facility:[facility] Procedures Date Procedure Procedure Detail Performing Clinician Start: 08-29-2024 Excision of lipoma Fredy aeana NILL None (qualifier value) Denny sauceda NILL Payers Date Payer Category Payer Medicaid [id number] 2. [id number] 2024 Self-pay 1980 Unknown [id number] 2.16.84 [id number] 1981 Unknown [id number] 2.16.84 [id number] 1981 Unknown [id number] 2.16.84 [id number] 1981 Unknown [id number] 2.16.84 [id number] 1981 Unknown [id number] 2.16.84 [id number] 1981 Unknown [id number] 2.16.8 [id number] 1981 Unknown [id number] 2.16.8 [id number] 1981 Unknown [id number] 2.16.8 [id number] 1981 Unknown [id number] 2.16.8 [id number] 1959 Unknown [id number] Unknown Sis BC/BS [id number] Unknown [id number] 2.16.8 [id number] Social History Date Type Detail Facility Sex Assigned At [facility] Start: 08-08-2024 Tobacco smoking status Smokes tobacco daily (finding) [facility] Tobacco smoking status Never [facility] Work Phone: Start: 08-30-2024 Sex Male (finding) [facility] Start: 1980 Sex Assigned At Male F [facility] Functional Status Date Assessment Result Facility 08-08-2024 Functional Status N/A [facility] Clinical Note 08-08-2024 Note Date & Type [...] plan excisional biopsy under local anesthesia at [facility] for definitive diagnosis and treatment; informed [...] Primary malignant neoplasm of female breast: [facility] Comment on above: Result Comment: Elec tronically Signed By: JOSIANE CANNON, Ziggy Cheung\Date and Time Signed: 08/08/24 14:09 EST Evaluation note 10-13-2022 Note Date & Type Note Facility 10-13-2022 Evaluation note Encounter Date Diagnosis Assessment Notes Sep, Liver lesion (ICD-10 - K76.9) Sep, Chronic pancreatitis (ICD-10 - K86.1) [facility] Other Clinical Note 05-04-2022 Note Date & [...] by: PIPER FRANKEL Date: 2022-05-04 16:34 [facility] Evaluation + Plan note Note Date & Type Note Facility Evaluation + Plan note No data available for this section [facility] Evaluation note Note Date & Type Note Facility Evaluation note [facility] History general Narrative - Reported Note Date & Type Note Facility History general Narrative - Reported Type Medical History alcohol abuse [facility] Other Hospital Discharge instructions Note Date & Type Note Facility Hospital Discharge instructions No data available for this section [facility] Progress note Note Date & Type Note Facility Progress note No data available for this section [facility] Summary Purpose Family History No Family History Records FoundNo Family History Records Found No data available for this section No Family History Records Found No data available [...] and content) DATE CREATED AUTHOR 05/20/2022 [facility] DATE CREATED AUTHOR AUTHOR'S ORGANIZ ATION 06/23/2024 [facility] DATE CREATED AUTHOR AUTHOR'S ORGANIZ ATION 08/31/2024 [facility] DATE CREATED AUTHOR AUTHOR'S ORGANIZ ATION 11/11/2024 [facility] REASON FOR VISIT (unrecogniz ed section and content) PATIENT HERE AT THE REQUEST OF DR. JANN ALBERTO FOR LIVER MASS AND CHRONIC PANCREATITIS/PER [facility] DOUBLE BOOK Patient Care team informatio n (unrecognized section and content) Team Status: Inactive Member Role Status Dates Ziggy Aguayo MD [facility] Attending Provider Active Start: August 29, 2024 [...] BE BASED ON THE PRIMARY CLINICAL RECORDS. [employer] provides no warranty or guarantee of the accuracy or completeness of information in this document.
[2025-02-27 19:03] VITALS: BP 129/94; PULSE 58; TEMP 36.6; O2SAT 99; BMI 23.5
--- NOTE | 2025-02-27 19:34 | ED.SKABFB1 ---
HPI - Skin/Abscess/Foreign Bdy General Chief complaint: Skin/Abscess/Foreign Body Stated complaint: BUMP ON RIGHT SIDE OF FACE SWOLLEN Time Seen by Provider: 02/27/25 19:07 Source: patient and friend (significant other) Mode of arrival: walk-in Limitations: no limitations History of Present Illness HPI narrative: 44-year-old male presents to the emergency department with significant other with complaint of pain and swelling to the right maxillary region. Onset about 2 months ago. States he has been getting intermittent pus like drainage coming from it and expressing, squeezing. Complains of pain, pressure. Complains that the area is very hard at this moment. Denies any fever, chills. Quality:?as above Severity:?moderate Timing:?as above, constant, waxing and waning Context: Normal setting and activity? Modifying factors:?Pain worse with palpation Associated symptoms: as above Related Data Previous Rx's ?Medication ?Instructions ?Recorded sulfamethoxazole 800 1 tab PO BID 10 days #20 tabs 02/27/25 mg-trimethoprim 160 mg tablet (Bactrim DS) Allergies Allergy/AdvReac Type Severity Reaction Status Date / Time No Known Drug Allergies Allergy Verified 02/27/25 19:07 Review of Systems ROS Narrative CONST: Denies any fever, chills ENDOCRINE: Denies history of diabetes MS: Denies arthralgias, myalgias SKIN: + color change, swelling.? Denies any itching NEURO: Denies any numbness, tingling PFSH PFSH Medical History Vitamin D deficiency ?E55.9 - Vitamin D deficiency, unspecified (ICD-10) Lipoma of right lower extremity ?D17.23 - Benign lipomatous neoplasm of skin and subcutaneous tissue of right leg (ICD-10) Lesion of liver ?K76.9 - Liver disease, unspecified (ICD-10) GERD (gastroesophageal reflux disease) ?K21.9 - Gastro-esophageal reflux disease without esophagitis (ICD-10) Chronic pancreatitis ?K86.1 - Other chronic pancreatitis (ICD-10) Family History Mother Breast cancer Grandfather Prostate cancer Social History Within the past year, how often did you have a drink containing alcohol: monthly or less Within the past year, how many standard drinks containing alcohol did you have on a typical day: 1 or 2 Total score: 0 Score interpretation: A score less than 4 is consistent with normal alcohol consumption. Smoking status: Current some day smoker Non-prescribed substance use: cannabis (any form) Non-prescribed substance use details: 3 to 5 times a week Highest level of school completed/degree received: high school graduate Little interest or pleasure in doing things: not at all Feeling down, depressed, or hopeless: not at all Exam Narrative Exam Narrative: Vital signs reviewed Nurses notes noted CONST: Nontoxic, well appearing, well nourished, in no distress.? No diaphoresis.?? HENT: normocephalic, atraumatic, moist mucous membrane, no abnormalities of the nose noted, hearing normal EYES: normal appearing conjunctiva, no apparent discharge bilat NECK: normal appearance MS: no edema SKIN: + erythema, swelling, induration, warm to touch area to the right maxillary region adjacent to the nose measuring 1cm. No fluctuant, pointing.? Not currently draining. No surrounding cellulitis NEURO: A&Ox 3 PSYCH: normal mood, affect Constitutional Vital Signs, click to edit/add: Last Vital Signs Temp 97.9 F 02/27/25 19:03 Pulse 58 L 02/27/25 19:03 Resp 14 02/27/25 19:03 BP 129/94 H 02/27/25 19:03 Pulse Ox 99 02/27/25 19:03 Course Vital Signs Vital signs: Vital Signs Temperature 97.9 F 02/27/25 19:03 Pulse Rate 58 L 02/27/25 19:03 Respiratory Rate 14 02/27/25 19:03 Blood Pressure 129/94 H 02/27/25 19:03 Pulse Oximetry 99 02/27/25 19:03 Temperature 97.9 F 02/27/25 19:03 Pulse Rate 58 L 02/27/25 19:03 Respiratory Rate 14 02/27/25 19:03 Blood Pressure 129/94 H 02/27/25 19:03 Pulse Oximetry 99 02/27/25 19:03 MDM - Skin/Abscess/Foreign Bdy MDM Narrative Medical decision making narrative: This is a pleasant 44-year-old male who presents to the emergency department for evaluation of pain, swelling to the right facial cheek On arrival, afebrile, vitals stable Exam, nontoxic, well-appearing patient in no distress. He has a 1 cm area of swelling, indurated throughout to the right maxillary cheek adjacent to the nose. No fluctuance, pointing, surrounding erythema. Favor soft tissue infection, folliculitis Contact dermatitis, abscess less likely based on physical exam. No fluctuance, pointing. ID considered, but based on exam, low suspicion of drainage to be removed History and Record Review Discussion with independent historian: Significant other Disposition ? The patient was discharged. He was given dose of Bactrim in the emergency department. He was encouraged to perform warm compresses on the area. Prescriptions sent to pharmacy: Bactrim Plan: Patient will be discharged to home.? Condition at time of disposition: stable.? Advised to follow up with primary provider. Advised to return for any worsening and/or development of new, concerning signs or symptoms PLEASE NOTE: Portions of the medical record may have been produced using electronic elementary assistant principal and may contain errors with respect to translation of words which may not have been identified prior to finalization of the chart. Medical Records Attestation: I reviewed the patient's medical records. Discharge Plan Discharge Chief Complaint: Skin/Abscess/Foreign Body Clinical Impression: Soft tissue infection, Acute facial pain Patient Disposition: Home, Self-Care Time of Disposition Decision: 19:45 Condition: Good Mode of Transportation: Private Vehicle Prescriptions / Home Meds: New sulfamethoxazole-trimethoprim [Bactrim DS] 800-160 mg tablet 1 tab PO BID 10 Days Qty: 20 0RF Print Language: Hungarian Instructions: Wound Infection (ED) Additional Instructions: Perform warm compresses to the area several times daily. Referrals: Physician,Non-Staff, MD [Primary Care Provider] - 1 week
[2025-02-27] MEDS: SULFAMETHOXAZOLE/TRIMETHOPRIM 800-160 MG TABLET 1 TAB PO (20:00)
== END 2025-02-27 20:03 | disposition home or self-care (01) ==
PROVIDERS: Emergency Provider Emergency Medicine
DX: R22.0 Localized swelling, mass and lump, head (principal); G50.1 Atypical facial pain; L08.9 Local infection of the skin and subcutaneous tissue, unspecified
CPT/HCPCS: 99283

== ENCOUNTER 2025-03-12 21:17 | Emergency (ER) | payer SELFPAY ==
[2025-03-12 21:25] VITALS: BP 102/74; PULSE 78; TEMP 36.5; O2SAT 99; BMI 24.1
--- NOTE | 2025-03-12 21:32 | ED.GENADUL1 ---
HPI HPI - General Adult General Chief complaint: Dental/Oral Stated complaint: TOOTH ACHE Time Seen by Provider: 03/12/25 21:24 Source: patient Source information: Seen in ER 1 week ago. Antibiotic for 1 week for 'lump under right eye. Pain slightly improved. Heat applied. Area has not opened and patient returns to see if area can be drained. Mode of arrival: walk-in Limitations: no limitations History of Present Illness HPI narrative: 44-year-old male returns her to the emergency room for evaluation of a cyst that he has on the right cheek area. 1 week ago placed on Bactrim. He states he was told to come in to have reevaluated. Patient has a small 1 x 1 cm area round ball appearing inclusion cyst on the right cheek. It is not red and hot at this time. He completed his Bactrim. Related Data Previous Rx's ?Medication ?Instructions ?Recorded sulfamethoxazole 800 1 tab PO BID 10 days #20 tabs 02/27/25 mg-trimethoprim 160 mg tablet (Bactrim DS) clindamycin HCl 300 mg capsule 300 mg PO BID 10 days #20 caps 03/12/25 Allergies Allergy/AdvReac Type Severity Reaction Status Date / Time No Known Drug Allergies Allergy Verified 02/27/25 19:07 Opioid HPI Opioid Management Most Recent Opioid Data: Last Pain Scale 2 Today, 21:25 Review of Systems ROS Status of ROS 10 or more systems reviewed and unremarkable except as noted in history and below [facility] Medical History Vitamin D deficiency ?E55.9 - Vitamin D deficiency, unspecified (ICD-10) Lipoma of right lower extremity ?D17.23 - Benign lipomatous neoplasm of skin and subcutaneous tissue of right leg (ICD-10) Lesion of liver ?K76.9 - Liver disease, unspecified (ICD-10) GERD (gastroesophageal reflux disease) ?K21.9 - Gastro-esophageal reflux disease without esophagitis (ICD-10) Chronic pancreatitis ?K86.1 - Other chronic pancreatitis (ICD-10) Family History Mother Breast cancer Grandfather Prostate cancer Social History Within the past year, how often did you have a drink containing alcohol: monthly or less Within the past year, how many standard drinks containing alcohol did you have on a typical day: 1 or 2 Total score: 0 Score interpretation: A score less than 4 is consistent with normal alcohol consumption. Smoking status: Current some day smoker Non-prescribed substance use: cannabis (any form) Non-prescribed substance use details: 3 to 5 times a week Highest level of school completed/degree received: high school graduate Little interest or pleasure in doing things: not at all Feeling down, depressed, or hopeless: not at all Exam Constitutional Vital Signs, click to edit/add: Last Vital Signs Temp 97.7 F 03/12/25 21:25 Pulse 78 03/12/25 21:25 Resp 16 03/12/25 21:25 BP 102/74 03/12/25 21:25 Pulse Ox 99 03/12/25 21:25 O2 Del Method Room Air 03/12/25 21:25 Course Vital Signs Vital signs: Vital Signs Temperature 97.7 F 03/12/25 21:25 Pulse Rate 78 03/12/25 21:25 Respiratory Rate 16 03/12/25 21:25 Blood Pressure 102/74 03/12/25 21:25 Pulse Oximetry 99 03/12/25 21:25 Oxygen Delivery Method Room Air 03/12/25 21:25 Temperature 97.7 F 03/12/25 21:25 Pulse Rate 78 03/12/25 21:25 Respiratory Rate 16 03/12/25 21:25 Blood Pressure 102/74 03/12/25 21:25 Pulse Oximetry 99 03/12/25 21:25 Oxygen Delivery Method Room Air 03/12/25 21:25 Medical Decision Making MDM Narrative Medical decision making narrative: 44-year-old male returns her to the emergency room for evaluation of a cyst that he has on the right cheek area. 1 week ago placed on Bactrim. He states he was told to come in to have reevaluated. Patient has a small 1 x 1 cm area round ball appearing inclusion cyst on the right cheek. It is not red and hot at this time. He completed his Bactrim. What appears to be an inclusion cyst or sebaceous cyst. I explained to the patient that it is not ready to be opened or drained. I will place patient on clindamycin and told him to use [id number] Neosporin on the area as well. Warm heat compress. He will be given a follow-up with general surgeon. Patient told to continue as directed. He states that it has not been much improved from previous. He was just hoping to have it drained. I explained to him I cannot drain at this point in time. Patient will follow-up with general surgery or return to the emergency room if condition worsens. Differential Diagnosis Differential Diagnosis: Abscess, sebaceous cyst Medical Records Medical records reviewed: Yes I reviewed the patient's medical records Discharge Plan Discharge Chief Complaint: Dental/Oral Clinical Impression: Folliculitis, Acute facial pain, Sebaceous cyst Patient Disposition: Home, Self-Care Time of Disposition Decision: 21:30 Condition: Good Prescriptions / Home Meds: New clindamycin HCl 300 mg capsule 300 mg PO BID 10 Days Qty: 20 0RF No Action sulfamethoxazole-trimethoprim [Bactrim DS] 800-160 mg tablet 1 tab PO BID 10 Days Qty: 20 0RF Print Language: Polish Instructions: Folliculitis (ED), Cyst (ED) Referrals: Ziggy Aguayo MD [Physician, General Surgery] - 1 week Physician,Non-Staff, [Primary Care Provider] - 1 week
--- NOTE | 2025-03-12 21:44 | PC.NURSE ---
PT STATES HAS HAD 'BUMP X 1 MONTH AND HAS COMPLETED ABX AND NO IMPROVEMENT.
--- OUTSIDE RECORDS SUMMARY | 2025-03-12 22:08 | XMS_ITS | CCD ---
Author Organization [facility] Care Team Providers Care Staff Certified Nurse Midwife Name Role Phone CASS, DR BOYCE Primary [...] SHIRLEY ZHANG Consulting Unavailable Víctor Mendez Unavailable [phone] BEBE, ROMARIO Referring Unavailable SERVICES, [facility] Primary Care Unava ilable BEBE, ROMARIO Primary Care Physician Ziggy Aguayo MD Attending Provider [phone] Ziggy Aguayo Attending Unavailable Ziggy Aguayo Admitting [...] Medication Allergies] Propensity to adverse reactions (disorder) [facility] Repository Medications Current Medications Medication [...] [id number] Received: 08/29/24 Status: ARABELLA Ashley Num: [id number] Spec Type: Surgical Subm Dr: Ziggy Aguayo MD FACS Tissues: A Lipoma (RT THIGH) Procedures: VALENTIN, Gross/Micro L3 ---- Age/ Patient Sex Location Account Attending Physician ---- Abraham Gomez 44/M LABELL [id number] Ziggy Aguayo MD FACS ---- SPEC NUM: [id number] RECD: 08/29/24 STATUS: ARABELLA RAMIREZ NUM: [id number] OVI: 08/29/[address] [facility] DR: Ziggy Aguayo MD FACS ENTERED: 08/29/24 [...] areas of hemorrhage or necrosis are present. Extension Edger sections are submitted in A1. TW ---- Specimen: [id number] Received: 08/29/24 Status: ARABELLA Ramirez Num: [id number] Spec Type: Surgical Subm Dr: Ziggy Aguayo MD FACS Tissues: A Lipoma (RT THIGH) Procedures: Sharad HANSON/Diony L3 ---- Patient: Abraham Gomez [id number] (Continued) ---- Specimen: [id number] Received: 08/29/24 (Continued) Signed (signature on file) Joshua Melendez MD 08/30/24 165 ---- Specimen: [id number] Received: 08/29/24 Status: ARABELLA Ramirez Num: [id number] Spec Type: Surgical Subm Dr: Ziggy Aguayo MD FACS Tissues: A Lipoma (RT THIGH) Procedures: Sharad HANSON/Diony L3 ---- Patient: Abraham Gomez [id number] (Continued) ---- Specimen: [id number] Received: 08/29/24 (Continued) Microscopic Description Microscopic examinations are performed supporting the above interpretation CPT Codes 64887 ---- ---- Specimen: [id number] Received: 08/29/24 Status: ARABELLA Ramirez Num: [id number] Spec Type: Surgical Subm Dr: Ziggy Aguayo MD FACS Tissues: A Lipoma (RT THIGH) Procedures: VALENTIN, Gross/Micro L3 ---- Patient: Abraham Gomez [id number] (Continued) ---- Signed (signature on file) Phi-Cory Melendez MD 08/30/24 1651 Normal [facility] Ambulatory Visit Summaryon 0 08-08-2024 [...] you for choosing us for your care. [facility] US EXT NON-VASC RT LIMITEDon 06-23-2024 [...] Pop MD on 06/23/2024 9:40 AM Normal [facility] XR FOOT LT MIN 3 VIEWSon [...] JERICA REEVES Date: 2022-04-05 01:19 Normal [facility] AMYLASEon 08-04-2021 Amylase [Catalytic activity/Vol] 128 U/L Critically high 31-110 [facility] Comment on above: Performed By: #### C MP, LIPA, LIZZY #### [facility] Laboratory [address] [address] [address] Cirilo Melendez CBC AUTO DIFFon 08-04-2021 BASO # 0.0 103/ul Normal 0.0-0.1 [facility] Comment on above: Performed By: #### C BC #### [facility] Laboratory [address] [address] [address] Cirilo Melendez Basophils/100 WBC (Bld) 0.4 % Normal 0.2-2.0 [facility] Comment on above: Performed By: #### C BC #### [facility] Laboratory [address] [place] [address] Dr. Cirilo Melendez EO # 0.1 103/ul Normal 0.0-0.7 [facility] Comment on above: Performed By: #### C BC #### [facility] Laboratory [address] [place] [address] Dr. Cirilo Melendez Eosinophils/100 WBC (Bld) 0.8 % Critically low 0.9-7.0 [facility] Comment on above: Performed By: #### C BC #### [facility] Laboratory [address] [place] [address] Dr. Cirilo Melendez Erythrocyte distribution width (RBC) [Ratio] 13.9 % Normal 11.0-15.0 [facility] Comment on above: Performed By: #### C BC #### [facility] Laboratory [address] [place] [address] Dr. Cirilo Melendez Hematocrit (Bld) [Volume fraction] 45.0 % Normal 42.0-54.0 [facility] Comment on above: Performed By: #### C BC #### [facility] Laboratory [address] [place] [address] Dr. Cirilo Melendez Hemoglobin (Bld) [Mass/Vol] 15.2 g/dL Normal 14.0-18.0 [facility] Comment on above: Performed By: #### C BC #### [facility] Laboratory [address] [place] [address] Dr. Cirilo Melendez IG # 0.04 10e3/ul Critically high 0.00-0.03 [facility] Comment on above: Performed By: #### C BC #### [facility] Laboratory [address] [place] [address] Dr. Cirilo Melendez IG % 0.4 % Normal 0.0-0.5 [facility] Comment on above: Performed By: #### C BC #### [facility] Laboratory [address] [place] [address] Dr. Cirilo Melendez LYMPH # 2.5 103/ul Normal 1.2-3.8 [facility] Comment on above: Performed By: #### C BC #### [facility] Laboratory [address] [place] [address] Dr. Cirilo Melendez Lymphocytes/100 WBC (Bld) 27.6 % Normal 20.5-60.0 [facility] Comment on above: Performed By: #### C BC #### [facility] [address] [place] [address] Dr. Cirilo Melendez MANUAL DIFF REQ NO Normal [facility] Comment on above: Performed By: #### C BC #### [facility] [address] [place] [address] Dr. Cirilo Melendez MCH (RBC) [Entitic mass] 30.5 pg Normal 25.9-34.0 [facility] Comment on above: Performed By: #### C BC #### [facility] [address] [place] [address] Dr. Cirilo Melendez MCHC (RBC) [Mass/Vol] 33.8 g/dL Normal 29.9-35.2 [facility] Comment on above: Performed By: #### C BC #### [facility] [address] [place] [address] Dr. Cirilo Melendez MCV (RBC) [Entitic vol] 90.2 fL Normal 80.0-94.0 [facility] Comment on above: Performed By: #### C BC #### [facility] [address] [place] [address] Dr. Cirilo Melendez MONO # 0.8 103/ul Normal 0.3-0.8 [facility] Comment on above: Performed By: #### C BC #### [facility] [address] [place] [address] Dr. Cirilo Melendez Monocytes/100 WBC (Bld) 8.7 % Normal 1.7-12.0 [facility] Comment on above: Performed By: #### C BC #### [facility] Laboratory [address] [place] [address] Dr. Cirilo Melendez NEUT # 5.6 103/ul Normal 1.4-6.5 [facility] Comment on above: Performed By: #### C BC #### [facility] Laboratory [address] [place] [address] Dr. Cirilo Melendez Neutrophils/100 WBC (Bld) 62.1 % Normal 43.0-75.0 [facility] Comment on above: Performed By: #### C BC #### [facility] Laboratory [address] [place] [address] Dr. Cirilo Melendez Platelet mean volume (Bld) [Entitic vol] 9.4 fL Critically low 9.5-13.5 [facility] Comment on above: Performed By: #### C BC #### [facility] [address] [place] [address] Dr. Cirilo Melendez PLT 272 103/ul Normal 150-450 [facility] Comment on above: Performed By: #### C BC #### [facility] [address] [place] [address] Dr. Cirilo Melendez RBC 4.99 106/ul Normal 4.70-6.10 [facility] Comment on above: Performed By: #### C BC #### [facility] [address] [place] [address] Dr. Cirilo Melendez WBC 9.1 103/ul Normal 4.0-11.0 [facility] Comment on above: Performed By: #### C BC #### [facility] Laboratory [address] [place] [address] Dr. Cirilo Melendez ER URINE PROFILEon 2 Bilirubin Ql (U) Negative Normal NEGATIVE [facility] Comment on above: Performed By: #### E RUR #### [facility] Laboratory [address] [place] [address] Dr. Cirilo Melendez Clarity (U) CLEAR Normal CLEAR [facility] Comment on above: Performed By: #### E RUR #### [facility] Laboratory [address] [place] [address] Dr. Cirilo Melendez Color (U) YELLOW Normal YELLOW [facility] Comment on above: Performed By: #### E RUR #### [facility] Laboratory [address] [place] [address] Dr. Cirilo Melendez ERUKATY A micrscopic examination will be performed if indicated. Normal [facility] Comment on above: Performed By: #### E RUR #### [facility] Laboratory [address] [place] [address] Dr. Cirilo Melendez Glucose Ql (U) Negative Normal NEGATIVE [facility] Comment on above: Performed By: #### E RUR #### [facility] Laboratory [address] [place] [address] Dr. Cirilo Melendez Hemoglobin Ql (U) Negative Normal NEGATIVE [facility] Comment on above: Performed By: #### E RUR #### [facility] [address] [place] [address] Dr. Cirilo Melendez Ketones Ql (U) Negative Normal NEGATIVE [facility] Comment on above: Performed By: #### E RUR #### [facility] [address] [place] [address] Dr. Cirilo Melendez LEUKOCYTES Negative Normal NEGATIVE [facility] Comment on above: Performed By: #### E RUR #### [facility] [address] [place] [address] Dr. Cirilo Melendez Nitrite Ql (U) Negative Normal NEGATIVE [facility] Comment on above: Performed By: #### E RUR #### [facility] [address] [place] [address] Dr. Cirilo Melendez pH (U) 6.0 [pH] Normal 5-9 [facility] Comment on above: Performed By: #### E RUR #### [facility] Laboratory [address] [place] [address] Dr. Cirilo Melendez SPEC GRAVITY 1.025 Normal 1.005-<=1.[address] [facility] Comment on above: Performed By: #### E RUR #### [facility] Laboratory [address] [place] [address] Dr. Cirilo Melendez UA PROTEIN Negative Normal NEGATIVE/ TRACE [facility] Comment on above: Performed By: #### E RUR #### [facility] Laboratory [address] [place] [address] Dr. Cirilo Melendez UR MICRO IND NOT INDICATED Normal [facility] Comment on above: Performed By: #### E RUR #### [facility] Laboratory [address] [place] [address] Dr. Cirilo Melendez Urobilinogen Qn (U) 0.2 {Gertrudis'U}/dL Normal 0.2 - 1.0 [facility] Comment on above: Performed By: #### E RUR #### [facility] Laboratory [address] [place] [address] Dr. Cirilo Melendez LACTATE/LACTIC ACIDon 2021 Lactate [Moles/Vol] 0.6 mmol/L Critically low 0.7-2.0 [facility] Comment on above: Performed By: #### L ACT #### [facility] Laboratory [address] [place] [address] Dr. Cirilo Melendez LIPASEon 08-04-2021 Lipase [Catalytic activity/Vol] 508.0 U/L Critically high 23.0-300.0 [facility] Comment on above: Performed By: #### C MP LIPA, LIZZY #### [facility] Laboratory [address] [place] [address] Dr. Cirilo Melendez PROF 14(COMP METB)on 022 Albumin [Mass/Vol] 3.8 g/dL Normal 3.5-5.0 [facility] Comment on above: Performed By: #### C ALON LIPA, LIZZY #### [facility] Laboratory [address] [place] [address] Dr. Cirilo Mleendez Albumin/Globulin [Mass ratio] 0.9 {ratio} Normal [facility] Comment on above: Performed By: #### C MP LIPA, LIZZY #### [facility] Laboratory [address] [place] [address] Dr. Cirilo Melendez ALP [Catalytic activity/Vol] 74 U/L Normal 38-126 [facility] Comment on above: Performed By: #### C MP LIPA, LIZZY #### [facility] Laboratory [address] [place] [address] Dr. Cirilo Melendez ALT [Catalytic activity/Vol] 45 U/L Normal 21-72 [facility] Comment on above: Performed By: #### C MP LIPA, LIZZY #### [facility] [address] [place] [address] Dr. Cirilo Melendez Anion gap [Moles/Vol] 10.0 mmol/L Normal [facility] Comment on above: Performed By: #### C NELLIE CHI LIZZY #### [facility] [address] [address] [address] Cirilo Melendez AST [Catalytic activity/Vol] 16 U/L Critically low 17-59 [facility] Comment on above: Performed By: #### C NELLIE CHI, LIZZY #### [facility] [address] [address] [address] Cirilo Melendez Bilirubin [Mass/Vol] 0.4 mg/dL Normal 0.2-1.3 [facility] Comment on above: Performed By: #### C NELLIE CHI, LIZZY #### [facility] [address] [address] [address] Cirilo Melendez Calcium [Mass/Vol] 9.7 mg/dL Normal 8.4-10.2 [facility] Comment on above: Performed By: #### C NELLIE CHI, LIZZY #### [facility] [address] [place] [address] Dr. Cirilo Melendez Chloride [Moles/Vol] 103 mmol/L Normal 98-107 [facility] Comment on above: Performed By: #### C NELLIE CHI, LIZZY #### [facility] [address] [address] [address] Cirilo Melendez CO2 [Moles/Vol] 30.3 mmol/L Critically high 22.0-30.0 [facility] Comment on above: Performed By: #### C NELLIE CHI, LIZZY #### [facility] Laboratory [address] [place] [address] Dr. Cirilo Melendez Creatinine [Mass/Vol] 1.13 mg/dL Normal 0.66-1.25 [facility] Comment on above: Performed By: #### C NELLIE CHI, LIZZY #### [facility] Laboratory [address] [address] [address] Cirilo Melendez EGFR-AF ISRAELI >60 Normal >=60 [facility] Comment on above: Performed By: #### C NELLIE CHI, LIZZY #### [facility] [address] [address] [address] Cirilo Melendez EGFR-NON AF ISRAELI >60 Normal >=60 [facility] Comment on above: Performed By: #### C NELLIE CHI, LIZZY #### [facility] [address] [address] [address] Cirilo Melendez Globulin (S) [Mass/Vol] 4.3 g/dL Normal [facility] Comment on above: Performed By: #### C NELLIE CHI, LIZZY #### [facility] Laboratory [address] [place] [address] Dr. Cirilo Melendez Glucose [Mass/Vol] 121 mg/dL Critically high 74-[address] [facility] Comment on above: Performed By: #### C NELLIE CHI, LIZZY #### [facility] Laboratory [address] [place] [address] Dr. Cirilo Melendez Potassium [Moles/Vol] 4.3 mmol/L Normal 3.4-5.0 [facility] Comment on above: Performed By: #### C MICHELLE CHIA, LIZZY #### [facility] Laboratory [address] [place] [address] Dr. Cirilo Melendez Protein [Mass/Vol] 8.1 g/dL Normal 6.1-8.2 [facility] Comment on above: Performed By: #### C NELLIE CHI, LIZZY #### [facility] Laboratory [address] [place] [address] Dr. Cirilo Melendez Sodium [Moles/Vol] 139 mmol/L Normal 137-145 [facility] Comment on above: Performed By: #### C MICHELLE CHIA, LIZZY #### [facility] Laboratory [address] [place] [address] Dr. Cirilo Melendez Urea nitrogen [Mass/Vol] 9.0 mg/dL Normal 9.0-20.0 [facility] Comment on above: Performed By: #### C MICHELLE CHIA, LIZZY #### [facility] Laboratory [address] [place] [address] Dr. Cirilo Melendez Urea nitrogen/Creatinin e [Mass ratio] 8.0 mg/mg Normal [facility] Comment on above: Performed By: #### C MP, LIPA, LIZZY #### [facility] Laboratory [address] [address] [address] Cirilo Melendez PROTIMEon 08-04-2021 INR Coag (PPP) [Relative time] 1.03 {INR} Normal [facility] Comment on above: Performed By: #### P TT, PT #### [facility] Laboratory [address] [place] [address] Dr. Cirilo Melendez INR GUIDELINES SEE BELOW Normal [facility] Comment on above: Result Comment: MIREYA RED INR: 2.0 - 3.0 CONDITIONS NOT LISTED BELOW 2.5 - 3.5 FOR PROSTHETIC HEART VALVE REPLACEMENT 2.5 - 3.5 RECURRENT THROMBOSIS Performed By: #### P TT, PT #### [facility] Laboratory [address] [place] [address] Dr. Cirilo Melendez PT Coag (PPP) [Time] 11.1 s Normal 9.0-11.6 [facility] Comment on above: Performed By: #### P TT, PT #### [facility] Laboratory [address] [place] [address] Dr. Cirilo Melendez PTTon 08-04-2021 aPTT Coag (Bld) [Time] 28.2 s Normal 22.3-36.2 [facility] Comment on above: Performed By: #### P TT, PT #### [facility] Laboratory [address] [place] [address] Dr. Cirilo Melendez Vital Signs Date Time Vital Sign Value Performing Clinician Facility 08-08-2024 13:26-0500 Blood Pressure Location Ziggy AGUAYO [facility] [place] 08-08-2024 13:26-0500 Diastolic blood pressure 70 mm[Hg] Ziggy AGUAYO [facility] [place] 08-08-2024 13:26-0500 Heart rate 70 /min Ziggy AGUAYO [facility] [place] 08-08-2024 13:26-0500 Respiratory rate 16 /min Ziggy AGUAYO [facility] [place] 08-08-2024 13:26-0500 Systolic blood pressure 116 mm[Hg] Ziggy AGUAYO [facility] [place] 10-13-2022 11:30-0400 Body height 182.88 cm Víctor Mendez Other [facility] Other 10-13-2022 11:30-0400 Body mass index (BMI) [Ratio] 24 kg/m2 Víctor Mendez Other [facility] Other 10-13-2022 11:30-0400 Body weight 80.29 kg Víctor Mendez Other [facility] Other 10-13-2022 11:30-0400 Diastolic blood pressure 73 mm[Hg] Víctor Mendez Other [facility] Other 10-13-2022 11:30-0400 Systolic blood pressure 120 mm[Hg] Víctor Mendez Other [facility] Other Encounters Encounter Date Encounter Type Care Provider Facility Start: 09-12-2024 End: 09-12-2024 ambulatory ROMARIO WASHINGTONEEL Facility:[facility] Start: 09-12-2024 End: 09-12-2024 Patient encounter procedure Ziggy AGUAYO [facility] [place] Start: 08-29-2024 End: 08-29-2024 ambulatory Ziggy Aguayo [facility] Work Phone: Start: 08-29-2024 End: 08-29-2024 Departed Referred Ziggy Aguayo MD Work Phone: [facility] Start: 08-29-2024 End: 08-29-2024 ambulatory ROMARIO BEBE Facility:[id number] Start: 08-08-2024 End: 08-08-2024 ambulatory ROMARIO BEBE Facility:[facility] [place] Start: 08-08-2024 End: 08-08-2024 Patient encounter procedure Ziggy Ngo JOSIANE [facility] [place] Start: 07-10-2024 ambulatory ROMARIO BEBE Facility:[facility] Start: 06-20-2024 End: 06-20-2024 ambulatory ROMARIO BEBE [facility] Start: 10-13-2022 End: 10-13-2022 ambulatory Víctor Mendez Other [facility] Other Start: 10-13-2022 Office outpatient ne w 45 minutes Víctor Mendez [facility] Start: 05-24-[address] DOCTOR ODELL [...] NILL Payers Date Payer Category Payer Medicaid [id number] 2. [id number] 2024 Self-pay 1980 Unknown [id number] 2.16.84 [id number] 1980 Unknown [id number] 2.16.84 [id number] 1981 Unknown [id number] 2.16.84 [id number] 1981 Unknown [id number] 2.16.84 [id number] 1981 Unknown [id number] 2.16.84 [id number] 1981 Unknown [id number] 2.16.8 [id number] 1981 Unknown [id number] 2.16.8 [id number] 1981 Unknown [id number] 2.16.8 [id number] 1981 Unknown [id number] 2.16.8 [id number] 1959 Unknown [id number] Unknown Sis BC/BS [id number] Unknown [id number] 2.16.8 [id number] Social History Date Type Detail Facility Sex Assigned At [facility] Start: 08-08-2024 Tobacco smoking status Smokes tobacco daily (finding) [facility] [place] Tobacco smoking status Never [facility] [place] [facility] Work Phone: Start: 08-30-2024 Sex Male (finding) [facility] Start: 1980 Sex Assigned At Male [facility] Functional Status Date Assessment Result Facility 08-08-2024 Functional Status N/A [facility] [place] Clinical Note 08-08-2024 Note Date & Type [...] plan excisional biopsy under local anesthesia at [facility] for definitive diagnosis and treatment; informed [...] Primary malignant neoplasm of female breast: Mother. [facility] Comment on above: Result Comment: Elec tronically Signed By: JOSIANE CANNON, Ziggy Cheung\Date and Time Signed: 08/08/24 14:09 EST Evaluation note 10-13-2022 Note Date & Type Note Facility 10-13-2022 Evaluation note Encounter Date Diagnosis Assessment Notes Sep, Liver lesion (ICD-10 - K76.9) Sep, Chronic pancreatitis (ICD-10 - K86.1) [employer] Other Clinical Note 05-04-2022 Note Date & [...] by: PIPER FRANKEL Date: 2022-05-04 16:34 [facility] Evaluation + Plan note Note Date & Type Note Facility Evaluation + Plan note No data available for this section [facility] [place] Evaluation note Note Date & Type Note Facility Evaluation note [facility] History general Narrative - Reported Note Date & Type Note Facility History general Narrative - Reported Type Medical History alcohol abuse [employer] [facility] [employer] Other Hospital Discharge instructions Note Date & Type Note Facility Hospital Discharge instructions No data available for this section [facility] [place] Progress note Note Date & Type Note Facility Progress note No data available for this section [facility] [place] Summary Purpose Family History No Family History [...] and content) DATE CREATED AUTHOR 05/20/2022 [facility] DATE CREATED AUTHOR AUTHOR'S ORGANIZ ATION 06/23/2024 [facility] DATE CREATED AUTHOR AUTHOR'S ORGANIZ ATION 08/31/2024 [facility] DATE CREATED AUTHOR AUTHOR'S ORGANIZ ATION 11/11/2024 [facility] REASON FOR VISIT (unrecogniz ed section and content) PATIENT HERE AT THE REQUEST OF DR. JANN ALBERTO FOR LIVER MASS AND CHRONIC PANCREATITIS/PER [facility] DOUBLE BOOK Patient Care team informatio n (unrecognized section and content) Team Status: Inactive Member Role Status Dates Ziggy Aguayo MD [facility] Attending Provider Active Start: August 29, [...] BE BASED ON THE PRIMARY CLINICAL RECORDS. [employer] provides no warranty or guarantee of the accuracy or completeness of information in this document.
== END 2025-03-12 22:01 | disposition home or self-care (01) ==
LOC: ER 22:06
PROVIDERS: Emergency Provider Emergency Medicine
DX: L73.8 Other specified follicular disorders (principal); G50.1 Atypical facial pain; L72.3 Sebaceous cyst
CPT/HCPCS: 99283